=== PATIENT | female | born 1940 | race Caucasian/White ===

== ENCOUNTER 2018-04-23 08:44 | Outpatient (RCR) | payer MEDICARE, SELFPAY ==
[2018-04-23 09:26] VITALS: BP 124/59; PULSE 59; RESP 16; TEMP 36.3; BMI 23.3
--- NOTE | 2018-04-23 10:54 | PCM.WC.HP ---
(1) Hypertension Status: Chronic Current Visit: No Code(s): I10 - Essential (primary) hypertension (2) Diabetes mellitus Status: Chronic Current Visit: No Qualifiers: Diabetes mellitus type: type 2 Code(s): E11.9 - Type 2 diabetes mellitus without complications (3) CHF (congestive heart failure) Status: Chronic Current Visit: No Code(s): I50.9 - Heart failure, unspecified (4) History of TIA (transient ischemic attack) Status: Chronic Current Visit: No Code(s): Z86.73 - Personal history of transient ischemic attack (TIA), and cerebral infarction without residual deficits (5) Chronic renal insufficiency, stage III (moderate) Status: Chronic Current Visit: No Code(s): N18.3 - Chronic kidney disease, stage 3 (moderate) (6) Anxiety Status: Chronic Current Visit: No Code(s): F41.9 - Anxiety disorder, unspecified (7) A-fib Status: Chronic Current Visit: No Code(s): I48.91 - Unspecified atrial fibrillation (8) Sleep apnea Status: Chronic Current Visit: No Code(s): G47.30 - Sleep apnea, unspecified (9) Arthritis Status: Chronic Current Visit: No Code(s): M19.90 - Unspecified osteoarthritis, unspecified site (10) GERD (gastroesophageal reflux disease) Status: Chronic Current Visit: No Code(s): K21.9 - Gastro-esophageal reflux disease without esophagitis (11) Depression Status: Chronic Current Visit: No Code(s): F32.9 - Major depressive disorder, single episode, unspecified (12) Hyperthyroidism Status: Chronic Current Visit: No Code(s): E05.90 - Thyrotoxicosis, unspecified without thyrotoxic crisis or storm (13) Peripheral neuropathy Status: Chronic Current Visit: No Code(s): G62.9 - Polyneuropathy, unspecified (14) Hyperlipidemia Status: Chronic Current Visit: No Code(s): E78.5 - Hyperlipidemia, unspecified (15) Giant cell arteritis Status: Chronic Current Visit: No Code(s): M31.6 - Other giant cell arteritis (16) Steroid dependence Status: Chronic Current Visit: No History of Present Illness Date of Service: 04/23/18 Chief Complaint: Referred by Dr. Sam Quinonez, belt machine operator, for evaluation relative to possible lower extremity arterial occlusive disease History of Wound: This is an 78-year-old female who presents as a referral from her belt machine operator, Dr. Sam Quinonez. At the time of her presentation, the patient has no complaints, but for occasional patchy scaliness and dermatitis on her feet, and rare episodes of pain in her feet which are unrelated to time of day, position, activity, etc. She was referred for evaluation relative to possible peripheral arterial occlusive disease. She underwent a noninvasive lower extremity arterial study at the [facility] 2 weeks ago, but was not told the results of her test, and records have not been received from other providers indicating the results. The patient is currently under the care of her family doctor, a clicker operator, and Dr. Sam Quinonez, her belt machine operator. The patient sleeps on a flat mattress at night. She experiences no swelling in her lower extremities. She has no history of lower extremity thrombophlebitis. When questioned specifically about symptoms of rest pain and intermittent claudication, which would be indicative of arterial occlusive disease, the patient denies any such symptoms. Review of medical records from 2012 reveals a noninvasive lower extremity arterial study which demonstrated evidence of arterial calcification, but no definitive evidence of an occlusive arterial process. A venous study, also from 2013, was normal bilaterally. Past Medical History Past Medical History: Chronic Problems Hypertension (Chronic) Diabetes mellitus (Chronic) CHF (congestive heart failure) (Chronic) History of TIA (transient ischemic attack) (Chronic) Chronic renal insufficiency, stage III (moderate) (Chronic) Anxiety (Chronic) A-fib (Chronic) Sleep apnea (Chronic) Arthritis (Chronic) GERD (gastroesophageal reflux disease) (Chronic) Depression (Chronic) Hyperthyroidism (Chronic) Peripheral neuropathy (Chronic) Hyperlipidemia (Chronic) Giant cell arteritis (Chronic) Steroid dependence (Chronic) Past Medical History: Patient has a history of anxiety, atrial fibrillation, arthritis, sleep apnea, gastroesophageal reflux disease, hypertension, peripheral neuropathy, depression, hyperthyroidism, giant cell arteritis, hyperlipidemia, steroid dependence, congestive heart failure, hypertension, and diabetes mellitus. She also has a history of transient ischemic attack in the remote past. She has a history of renal insufficiency, stage III. She denies a history of myocardial infarction and pulmonary disease. Surgical History: - - The patient is a AB 1 (spontaneous). 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 She has had sinus surgery in the past. She is undergone a total abdominal hysterectomy. She has had a cholecystectomy, and left foot surgery. Allergies/Adverse Reactions: Allergies acetaminophen [From Darvocet-N 100] Allergy (Verified 06/26/13 19:59) Other carvedilol [From Coreg] Allergy (Verified 06/26/13 19:59) Chest tightness diazepam [From Valium] Allergy (Verified 06/26/13 19:59) Other escitalopram oxalate [From Lexapro] Allergy (Verified 06/26/13 19:59) Other morphine Allergy (Verified 06/26/13 19:59) Rash niacin [From Niaspan Extended-Release] Allergy (Verified 06/26/13 19:59) Other Penicillins Allergy (Verified 06/26/13 19:59) Unknown prednisone Allergy (Verified 06/26/13 19:59) Other propoxyphene napsylate [From Darvocet-N 100] Allergy (Verified 06/26/13 19:59) Other rosuvastatin calcium [From Crestor] Allergy (Verified 06/26/13 19:59) Chest tightness Home Medications: Ambulatory Orders Medication Instructions Recorded ALPRAZolam [Xanax] 1 mg PO TID PRN PRN 06/26/13 Fluticasone 0.05% [Flonase Nasal 2 spray NASAL DAILY 06/26/13 [place]] Furosemide [Lasix] 40 mg PO DAILY 06/26/13 Hydroxyurea [Hydrea] 500 mg PO BID 06/26/13 Riboflavin 06/26/13 Simvastatin [Zocor] 10 mg PO QHS 06/26/13 Spironolactone [Aldactone] 25 mg PO DAILY 06/26/13 predniSONE tablet 10 mg PO DAILY@0800 06/26/13 - Family History Paternal - - The patient's father at the age of 73 with black lung. He was a muck miner blasting. Patient's mother at age of 86 with a history of dementia and Alzheimer's disease. Social History: The patient is a . She denies the use of alcohol and tobacco products. 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 Lives: Alone Smoking Status: Never smoker Tobacco Use: Non-smoker Alcohol: None Drugs: None Review of Systems Constitutional: Denies: Chills, Fever, Weight Change Eyes: Denies: Pain, Vision Change HEENT: Denies: Difficulty Hearing, Difficulty Swallowing, Sinus Congestion Cardiovascular: Denies: Chest Pain, Palpitations Respiratory: Denies: Cough, Shortness of Breath Gastrointestinal: Denies: Diarrhea, Nausea, Vomiting Genitourinary: Denies: Dysuria, Hematuria Endocrine: Denies: Heat/ Cold Intolerance, Polydipsia, Polyuria Hematologic/ Lymphatic: Denies: Easy Bruising, Easy Bleeding - Physical Exam Vital Signs Temp Pulse Resp BP 97.3 F L 59 L 16 124/59 H 04/23/18 09:26 04/23/18 09:26 04/23/18 09:26 04/23/18 09:26 General: Alert, Oriented x3, Cooperative, No apparent distress, Well developed, Well nourished, - - The patient is of normal body weight. HEENT: Atraumatic, PERRLA, EOMI, Normocephalic Oral: Moist Mucosa Neck: No JVD, Negative Carotid Bruits, Negative Hepatojugular Reflux, No Nodes, No Nuchal Rigidity, Trachea Midline Lungs: Clear to auscultation, Normal air movement, No rhonchi, No wheeze, No rales Cardiovascular: Regular rate, Regular Rhythm, Normal S1, Normal S2, No murmurs Abdomen: Soft, Non Tender, Non-Distended Extremities: No clubbing, No cyanosis, No edema, No Calf Tenderness, - - There is no swelling or edema noted in the patient's lower extremities. There are no open wounds or ulcerations. Minor scaliness is noted on the heels. There are no significant color changes in the lower extremities or feet. No rashes or abnormal lesions are noted. Feet are cool to palpation. Pedal pulses appear to be diminished somewhat by palpation. Skin: No rashes, No breakdown Wound Measurements and Assessment WC - Nurse 1 - General Ulcer Measurement Start: 04/23/18 09:24 Freq: Status: Active Protocol: Activity Type Activity Date Activity User E-Sign Co-Sign Detail Recorded Client Recorded Date Recorded By Document 04/23/18 09:26 DV [id number] 04/23/18 09:54 DV 04/23/18 09:26 Wound Center Nurse 1 [Edema Assessment] -Lower Limb Edema Present No WC - Nurse 2 - General Ulcer CM Notes Start: 04/23/18 09:24 Freq: Status: Active Protocol: Activity Type Activity Date Activity User E-Sign Co-Sign Detail Recorded Client Recorded Date Recorded By Document 04/23/18 10:52 JS [id number] 04/23/18 10:53 04/23/18 10:52 Pain Scale: 0-10 Numeric [Pain] -Is Patient Pain Free? Yes Neurological: Cranial nerves II-XII grossly intact, Neuro grossly intact Psych/Mental Status: Normal Affect, Appropriate, Alert and oriented to time, place, person, mood and affect Debridement Note Post-Debridement Measurements/Treatment WC - Nurse 2 - General Ulcer CM Notes Start: 04/23/18 09:24 Freq: Status: Active Protocol: Activity Type Activity Date Activity User E-Sign Co-Sign Detail Recorded Client Recorded Date Recorded By Document 04/23/18 10:52 [id number] 04/23/18 10:53 04/23/18 10:52 Pain Scale: 0-10 Numeric Is Patient Pain Free? Yes No debridement was completed today Assessment/Plan We are to await the recent results of the patient's noninvasive lower extremity arterial study. Assessment: This is an 78-year-old female who presents as a referral from her belt machine operator, Dr. Sam Quinonez. Question to be answered is does the patient have significant arterial occlusive disease in her lower extremities. Her history is documented above. She has very little in terms of symptoms in her lower extremities that are relatable to arterial insufficiency. She is relatively active for her age. She relates no symptoms of intermittent claudication. She denies symptoms which could be construed as rest pain at night while sleeping. Prior vascular studies performed approximately 5 years ago revealed no evidence of significant arterial occlusive disease in the lower extremities. A recent noninvasive lower extremity arterial study was performed at the [facility], based upon the patient's account. However, these results did not accompany the patient or proceed her visit. The results will be awaited. Patient is to return in approximately 2 weeks for reassessment, at which time it is anticipated that test results will be available. However, based upon the patient's history, significant arterial insufficiency is not suspected. Furthermore, considering her advanced age, aggressive management of arterial insufficiency, and the absence of limb threatening ischemia or significant symptoms, would be unlikely. Plan: We have requested the results of the patient's recent noninvasive lower extremity arterial study performed at the [facility]. The patient is to remain under the care of her other medical providers, including her family physician, clicker operator, and belt machine operator. The patient is to return in 2 weeks for reassessment. Patient is not a smoker. Influenza vaccine was not administered today. Patient stands 5 feet 3 inches tall. She weighs 132 pounds. Her BMI is 23.3, which is normal.
--- NOTE | 2018-04-23 10:58 | HP.PCM_ITS ---
(1) Hypertension Status: Chronic Current Visit: No Code(s): I10 - Essential (primary) hypertension (2) Diabetes mellitus Status: Chronic Current Visit: No Qualifiers: Diabetes mellitus type: type 2 Code(s): E11.9 - Type 2 diabetes mellitus without complications (3) CHF (congestive heart failure) Status: Chronic Current Visit: No Code(s): I50.9 - Heart failure, unspecified (4) History of TIA (transient ischemic attack) Status: Chronic Current Visit: No Code(s): Z86.73 - Personal history of transient ischemic attack (TIA), and cerebral infarction without residual deficits (5) Chronic renal insufficiency, stage III (moderate) Status: Chronic Current Visit: No Code(s): N18.3 - Chronic kidney disease, stage 3 (moderate) (6) Anxiety Status: Chronic Current Visit: No Code(s): F41.9 - Anxiety disorder, unspecified (7) A-fib Status: Chronic Current Visit: No Code(s): I48.91 - Unspecified atrial fibrillation (8) Sleep apnea Status: Chronic Current Visit: No Code(s): G47.30 - Sleep apnea, unspecified (9) Arthritis Status: Chronic Current Visit: No Code(s): M19.90 - Unspecified osteoarthritis, unspecified site (10) GERD (gastroesophageal reflux disease) Status: Chronic Current Visit: No Code(s): K21.9 - Gastro-esophageal reflux disease without esophagitis (11) Depression Status: Chronic Current Visit: No Code(s): F32.9 - Major depressive disorder, single episode, unspecified (12) Hyperthyroidism Status: Chronic Current Visit: No Code(s): E05.90 - Thyrotoxicosis, unspecified without thyrotoxic crisis or storm (13) Peripheral neuropathy Status: Chronic Current Visit: No Code(s): G62.9 - Polyneuropathy, unspecified (14) Hyperlipidemia Status: Chronic Current Visit: No Code(s): E78.5 - Hyperlipidemia, unspecified (15) Giant cell arteritis Status: Chronic Current Visit: No Code(s): M31.6 - Other giant cell arteritis (16) Steroid dependence Status: Chronic Current Visit: No History of Present Illness Date of Service: 04/23/18 Chief Complaint: Referred by Dr. Sam Quinonez, vocational adviser, for evaluation relative to possible lower extremity arterial occlusive disease History of Wound: This is an 78-year-old female who presents as a referral from her vocational adviser, Dr. Sam Quinonez. At the time of her presentation, the patient has no complaints, but for occasional patchy scaliness and dermatitis on her feet, and rare episodes of pain in her feet which are unrelated to time of day, position, activity, etc. She was referred for evaluation relative to possible peripheral arterial occlusive disease. She underwent a noninvasive lower extremity arterial study at the [facility] 2 weeks ago, but was not told the results of her test, and records have not been received from other providers indicating the results. The patient is currently under the care of her family doctor, a test deck supervisor, and Dr. Sam Quinonez, her vocational adviser. The patient sleeps on a flat mattress at night. She experiences no swelling in her lower extremities. She has no history of lower extremity thrombophlebitis. When questioned specifically about symptoms of rest pain and intermittent claudication, which would be indicative of arterial occlusive disease, the patient denies any such symptoms. Review of medical records from 2012 reveals a noninvasive lower extremity arterial study which demonstrated evidence of arterial calcification, but no definitive evidence of an occlusive arterial process. A venous study, also from 2013, was normal bilaterally. Past Medical History Past Medical History: Chronic Problems Hypertension (Chronic) Diabetes mellitus (Chronic) CHF (congestive heart failure) (Chronic) History of TIA (transient ischemic attack) (Chronic) Chronic renal insufficiency, stage III (moderate) (Chronic) Anxiety (Chronic) A-fib (Chronic) Sleep apnea (Chronic) Arthritis (Chronic) GERD (gastroesophageal reflux disease) (Chronic) Depression (Chronic) Hyperthyroidism (Chronic) Peripheral neuropathy (Chronic) Hyperlipidemia (Chronic) Giant cell arteritis (Chronic) Steroid dependence (Chronic) Past Medical History: Patient has a history of anxiety, atrial fibrillation, arthritis, sleep apnea, gastroesophageal reflux disease, hypertension, peripheral neuropathy, depression, hyperthyroidism, giant cell arteritis, hyperlipidemia, steroid dependence, congestive heart failure, hypertension, and diabetes mellitus. She also has a history of transient ischemic attack in the remote past. She has a history of renal insufficiency, stage III. She denies a history of myocardial infarction and pulmonary disease. Surgical History: - - The patient is a AB 1 (spontaneous). 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 She has had sinus surgery in the past. She is undergone a total abdominal hysterectomy. She has had a cholecystectomy, and left foot surgery. Allergies/Adverse Reactions: Allergies acetaminophen [From Darvocet-N 100] Allergy (Verified 06/26/13 19:59) Other carvedilol [From Coreg] Allergy (Verified 06/26/13 19:59) Chest tightness diazepam [From Valium] Allergy (Verified 06/26/13 19:59) Other escitalopram oxalate [From Lexapro] Allergy (Verified 06/26/13 19:59) Other morphine Allergy (Verified 06/26/13 19:59) Rash niacin [From Niaspan Extended-Release] Allergy (Verified 06/26/13 19:59) Other Penicillins Allergy (Verified 06/26/13 19:59) Unknown prednisone Allergy (Verified 06/26/13 19:59) Other propoxyphene napsylate [From Darvocet-N 100] Allergy (Verified 06/26/13 19:59) Other rosuvastatin calcium [From Crestor] Allergy (Verified 06/26/13 19:59) Chest tightness Home Medications: Ambulatory Orders Medication Instructions Recorded ALPRAZolam [Xanax] 1 mg PO TID PRN PRN 06/26/13 Fluticasone 0.05% [Flonase Nasal 2 spray NASAL DAILY 06/26/13 [place]] Furosemide [Lasix] 40 mg PO DAILY 06/26/13 Hydroxyurea [Hydrea] 500 mg PO BID 06/26/13 Riboflavin 06/26/13 Simvastatin [Zocor] 10 mg PO QHS 06/26/13 Spironolactone [Aldactone] 25 mg PO DAILY 06/26/13 predniSONE tablet 10 mg PO DAILY@0800 06/26/13 - Family History Paternal - - The patient's father at the age of 73 with black lung. He was a coal getter. Patient's mother at age of 86 with a history of dementia and Alzheimer's disease. Social History: The patient is a . She denies the use of alcohol and tobacco products. She is a retired dental secretary. Lives: Alone Smoking Status: Never smoker Tobacco Use: Non-smoker Alcohol: None Drugs: None Review of Systems Constitutional: Denies: Chills, Fever, Weight Change Eyes: Denies: Pain, Vision Change HEENT: Denies: Difficulty Hearing, Difficulty Swallowing, Sinus Congestion Cardiovascular: Denies: Chest Pain, Palpitations Respiratory: Denies: Cough, Shortness of Breath Gastrointestinal: Denies: Diarrhea, Nausea, Vomiting Genitourinary: Denies: Dysuria, Hematuria Endocrine: Denies: Heat/ Cold Intolerance, Polydipsia, Polyuria Hematologic/ Lymphatic: Denies: Easy Bruising, Easy Bleeding - Physical Exam Vital Signs Temp Pulse Resp BP 97.3 F L 59 L 16 124/59 H 04/23/18 09:26 04/23/18 09:26 04/23/18 09:26 04/23/18 09:26 General: Alert, Oriented x3, Cooperative, No apparent distress, Well developed, Well nourished, - - The patient is of normal body weight. HEENT: Atraumatic, PERRLA, EOMI, Normocephalic Oral: Moist Mucosa Neck: No JVD, Negative Carotid Bruits, Negative Hepatojugular Reflux, No Nodes, No Nuchal Rigidity, Trachea Midline Lungs: Clear to auscultation, Normal air movement, No rhonchi, No wheeze, No rales Cardiovascular: Regular rate, Regular Rhythm, Normal S1, Normal S2, No murmurs Abdomen: Soft, Non Tender, Non-Distended Extremities: No clubbing, No cyanosis, No edema, No Calf Tenderness, - - There is no swelling or edema noted in the patient's lower extremities. There are no open wounds or ulcerations. Minor scaliness is noted on the heels. There are no significant color changes in the lower extremities or feet. No rashes or abnormal lesions are noted. Feet are cool to palpation. Pedal pulses appear to be diminished somewhat by palpation. Skin: No rashes, No breakdown Wound Measurements and Assessment WC - Nurse 1 - General Ulcer Measurement Start: 04/23/18 09:24 Freq: Status: Active Protocol: Activity Type Activity Date Activity User E-Sign Co-Sign Detail Recorded Client Recorded Date Recorded By Document 04/23/18 09:26 DV [id number] 04/23/18 09:54 DV 04/23/18 09:26 Wound Center Nurse 1 [Edema Assessment] -Lower Limb Edema Present No WC - Nurse 2 - General Ulcer CM Notes Start: 04/23/18 09:24 Freq: Status: Active Protocol: Activity Type Activity Date Activity User E-Sign Co-Sign Detail Recorded Client Recorded Date Recorded By Document 04/23/18 10:52 JS [id number] 04/23/18 10:53 04/23/18 10:52 Pain Scale: 0-10 Numeric [Pain] -Is Patient Pain Free? Yes Neurological: Cranial nerves II-XII grossly intact, Neuro grossly intact Psych/Mental Status: Normal Affect, Appropriate, Alert and oriented to time, place, person, mood and affect Debridement Note Post-Debridement Measurements/Treatment WC - Nurse 2 - General Ulcer CM Notes Start: 04/23/18 09:24 Freq: Status: Active Protocol: Activity Type Activity Date Activity User E-Sign Co-Sign Detail Recorded Client Recorded Date Recorded By Document 04/23/18 10:52 [id number] 04/23/18 10:53 04/23/18 10:52 Pain Scale: 0-10 Numeric Is Patient Pain Free? Yes No debridement was completed today Assessment/Plan We are to await the recent results of the patient's noninvasive lower extremity arterial study. Assessment: This is an 78-year-old female who presents as a referral from her vocational adviser, Dr. Sam Quinonez. Question to be answered is does the patient have significant arterial occlusive disease in her lower extremities. Her history is documented above. She has very little in terms of symptoms in her lower extremities that are relatable to arterial insufficiency. She is relatively active for her age. She relates no symptoms of intermittent claudication. She denies symptoms which could be construed as rest pain at night while sleeping. Prior vascular studies performed approximately 5 years ago revealed no evidence of significant arterial occlusive disease in the lower extremities. A recent noninvasive lower extremity arterial study was performed at the [facility], based upon the patient's account. However, these results did not accompany the patient or proceed her visit. The results will be awaited. Patient is to return in approximately 2 weeks for reassessment, at which time it is anticipated that test results will be available. However, based upon the patient's history, significant arterial insufficiency is not suspected. Furthermore, considering her advanced age, aggressive management of arterial insufficiency, and the absence of limb threatening ischemia or significant symptoms, would be unlikely. Plan: We have requested the results of the patient's recent noninvasive lower extremity arterial study performed at the [facility]. The patient is to [place] under the care of her other medical providers, including her family physician, test deck supervisor, and vocational adviser. The patient is to return in 2 weeks for reassessment. Patient is not a smoker. Influenza vaccine was not administered today. Patient stands 5 feet 3 inches tall. She weighs 132 pounds. Her BMI is 23.3, which is normal.
--- NOTE | 2018-04-25 17:25 | WC ---
Patient referred from Dr. Sam Quinonez for lower leg ulcer. Mrs. Rodríguez's PCP is Dr. Vince Herrera, [facility]. Patient was scheduled and seen on Sunday04/23/[address] Bryon Ford. Mrs. Rodríguez was a poor historian regarding her medical history or diagnostic studies. [facility]. Her visit was limited since limitied medical history was available. Request for records sent to PCP (Dr. Wm Herrera [facility] (04/23/18) , and Dr. Javier Lai; for vascular records (Dr. Lai's office returned fax stating there are no patient records in that office). Re-faxed request for records from [facility]-Dr. Herrera including recent H&P, Lab Work (Blood/Cultures), & Non-Invasive Vascular Studies.
== END 2018-05-10 23:59 ==
LOC: WC 08:44
PROVIDERS: Family Provider Family Medicine; PCP Family Medicine; Visit Provider Surgery
DX: E11.22 Type 2 diabetes mellitus with diabetic chronic kidney disease (principal); N18.3 Chronic kidney disease, stage 3 (moderate); Z86.73 Personal history of transient ischemic attack (TIA), and cerebral infarction without residual deficits; I50.9 Heart failure, unspecified; I13.0 Hypertensive heart and chronic kidney disease with heart failure and stage 1 through stage 4 chronic kidney disease, or unspecified chronic kidney disease; M19.90 Unspecified osteoarthritis, unspecified site; K21.9 Gastro-esophageal reflux disease without esophagitis; E11.42 Type 2 diabetes mellitus with diabetic polyneuropathy; E78.5 Hyperlipidemia, unspecified
CPT/HCPCS: 99211; G0463

== ENCOUNTER 2018-06-10 15:00 | Outpatient (RCR) | payer MEDICARE, SELFPAY ==
[2018-05-11 02:02] VITALS: BP 124/59; PULSE 59; RESP 16; TEMP 36.3
[2018-06-05 11:51] VITALS: BP 136/72; PULSE 63; RESP 16; TEMP 35.4; BMI 23.3
--- NOTE | 2018-06-05 13:10 | PCM.WC.PN ---
(1) Heel pain, bilateral Status: Chronic Current Visit: Yes Code(s): M79.671 - Pain in right foot; M79.672 - Pain in left foot (2) Atherosclerotic peripheral vascular disease of extremity Status: Chronic Current Visit: Yes Code(s): I70.209 - Unspecified atherosclerosis of [place] arteries of extremities, unspecified extremity (3) Diabetes mellitus Status: Chronic Current Visit: No Code(s): E11.9 - Type 2 diabetes mellitus without complications Type of Wound Chief Complaint: Referred by Dr. Sam Quinonez, planning specialist, for evaluation relative to possible lower extremity arterial occlusive disease History of Wound: This is an 78-year-old female who presents as a referral from her planning specialist, Dr. Sam Quinonez. At the time of her presentation, the patient has no complaints, but for occasional patchy scaliness and dermatitis on her feet, and rare episodes of pain in her feet which are unrelated to time of day, position, activity, etc. She was referred for evaluation relative to possible peripheral arterial occlusive disease. She underwent a noninvasive lower extremity arterial study at the [facility] 2 weeks ago, but was not told the results of her test, and records have not been received from other providers indicating the results. The patient is currently under the care of her family doctor, a stained glass joiner, and Dr. Sam Quinonez, her planning specialist. The patient sleeps on a flat mattress at night. She experiences no swelling in her lower extremities. She has no history of lower extremity thrombophlebitis. When questioned specifically about symptoms of rest pain and intermittent claudication, which would be indicative of arterial occlusive disease, the patient denies any such symptoms. Review of medical records from 2012 reveals a noninvasive lower extremity arterial study which demonstrated evidence of arterial calcification, but no definitive evidence of an occlusive arterial process. A venous study, also from 2013, was normal bilaterally. Progress of Wound: Courtesy visit for Dr Ford. No acute concerns at this time. - Physical Exam Vital Signs Temp Pulse Resp BP 95.8 F L 63 16 136/72 H 06/05/18 11:51 06/05/18 11:51 06/05/18 11:51 06/05/18 11:51 General: Alert, Oriented x3, Cooperative, No apparent distress HEENT: Atraumatic, Normocephalic Oral: Moist Mucosa Neck: Supple Lungs: Normal air movement Extremities: No cyanosis Wound Measurements and Assessment WC - Nurse 2 - General Ulcer CM Notes Start: 06/05/18 11:51 Freq: Status: Active Protocol: Activity Type Activity Date Activity User E-Sign Co-Sign Detail Recorded Client Recorded Date Recorded By Document 06/05/18 12:28 [id number] 06/05/18 12:30 06/05/18 12:28 Pain Scale: 0-10 Numeric [Pain] -Is Patient Pain Free? No [Location] Right Heel -Description Aching -Intensity 6 Query Text:If >3, intervention needed -Radiation Location n/a -Duration (hours) Chronic -Pain Behavior Facial Grimacing -Pain Aggravating Factors Walking -Alleviating Factors/Interventions Inactivity/ Resting -Effectiveness of Alleviating Factor/ Not effective Intervention Musculoskeletal: No Muscle Wasting Neurological: Cranial nerves II-XII grossly intact Psych/Mental Status: Normal Affect Debridement Note Post-Debridement Measurements/Treatment WC - Nurse 2 - General Ulcer CM Notes Start: 06/05/18 11:51 Freq: Status: Active Protocol: Activity Type Activity Date Activity User E-Sign Co-Sign Detail Recorded Client Recorded Date Recorded By Document 06/05/18 12:28 [id number] 06/05/18 12:30 06/05/18 12:28 Pain Scale: 0-10 Numeric Is Patient Pain Free? No Right Heel -Description Aching -Intensity 6 Query Text:If >3, intervention needed -Radiation Location n/a -Duration (hours) Chronic -Pain Behavior Facial Grimacing -Pain Aggravating Factors Walking -Alleviating Factors/Interventions Inactivity/ Resting -Effectiveness of Alleviating Factor/ Not effective Intervention No debridement was completed today Assessment/Plan Active Problems Heel pain, bilateral (Chronic) Atherosclerotic peripheral vascular disease of extremity (Chronic) Assessment: Same as above. Plan: No acute/new concerns at this time. Chronic bilateral heel pain however, patient states that she has significant pressure to her heels daily when she lays in bed and watches the birds outside. Has had a prior history of heel ulcers. None apparent at this time. At best a stage I pressure. Offloading advised. Results of arterial status discussed. Advised that she follow-up with Dr. Ford. All her questions were answered, and she was advised to call with any further questions or concerns. Follow-up with Dr. Ford on the . This note was generated with Dragon dictation software. It may contain incorrect words, spelling, and punctuation that were not noted in checking the note before signing.
--- NOTE | 2018-06-05 13:17 | PN.PCM_ITS ---
(1) Heel pain, bilateral Status: Chronic Current Visit: Yes Code(s): M79.671 - Pain in right foot; M79.672 - Pain in left foot (2) Atherosclerotic peripheral vascular disease of extremity Status: Chronic Current Visit: Yes Code(s): I70.209 - Unspecified atherosclerosis of [place] arteries of extremities, unspecified extremity (3) Diabetes mellitus Status: Chronic Current Visit: No Code(s): E11.9 - Type 2 diabetes mellitus without complications Type of Wound Chief Complaint: Referred by Dr. Sam Quinonez, embossing calender operator, for evaluation relative to possible lower extremity arterial occlusive disease History of Wound: This is an 78-year-old female who presents as a referral from her embossing calender operator, Dr. Sam Quinonez. At the time of her presentation, the patient has no complaints, but for occasional patchy scaliness and dermatitis on her feet, and rare episodes of pain in her feet which are unrelated to time of day, position, activity, etc. She was referred for evaluation relative to possible peripheral arterial occlusive disease. She underwent a noninvasive lower extremity arterial study at the [facility] 2 weeks ago, but was not told the results of her test, and records have not been received from other providers indicating the results. The patient is currently under the care of her family doctor, a shorts sifter, and Dr. Sam Quinonez, her embossing calender operator. The patient sleeps on a flat mattress at night. She experiences no swelling in her lower extremities. She has no history of lower extremity thrombophlebitis. When questioned specifically about symptoms of rest pain and intermittent claudication, which would be indicative of arterial occlusive disease, the patient denies any such symptoms. Review of medical records from 2012 reveals a noninvasive lower extremity arterial study which demonstrated evidence of arterial calcification, but no definitive evidence of an occlusive arterial process. A venous study, also from 2013, was normal bilaterally. Progress of Wound: Courtesy visit for Dr Ford. No acute concerns at this time. - Physical Exam Vital Signs Temp Pulse Resp BP 95.8 F L 63 16 136/72 H 06/05/18 11:51 06/05/18 11:51 06/05/18 11:51 06/05/18 11:51 General: Alert, Oriented x3, Cooperative, No apparent distress HEENT: Atraumatic, Normocephalic Oral: Moist Mucosa Neck: Supple Lungs: Normal air movement Extremities: No cyanosis Wound Measurements and Assessment WC - Nurse 2 - General Ulcer CM Notes Start: 06/05/18 11:51 Freq: Status: Active Protocol: Activity Type Activity Date Activity User E-Sign Co-Sign Detail Recorded Client Recorded Date Recorded By Document 06/05/18 12:28 [id number] 06/05/18 12:30 06/05/18 12:28 Pain Scale: 0-10 Numeric [Pain] -Is Patient Pain Free? No [Location] Right Heel -Description Aching -Intensity 6 Query Text:If >3, intervention needed -Radiation Location n/a -Duration (hours) Chronic -Pain Behavior Facial Grimacing -Pain Aggravating Factors Walking -Alleviating Factors/Interventions Inactivity/ Resting -Effectiveness of Alleviating Factor/ Not effective Intervention Musculoskeletal: No Muscle Wasting Neurological: Cranial nerves II-XII grossly intact Psych/Mental Status: Normal Affect Debridement Note Post-Debridement Measurements/Treatment WC - Nurse 2 - General Ulcer CM Notes Start: 06/05/18 11:51 Freq: Status: Active Protocol: Activity Type Activity Date Activity User E-Sign Co-Sign Detail Recorded Client Recorded Date Recorded By Document 06/05/18 12:28 [id number] 06/05/18 12:30 06/05/18 12:28 Pain Scale: 0-10 Numeric Is Patient Pain Free? No Right Heel -Description Aching -Intensity 6 Query Text:If >3, intervention needed -Radiation Location n/a -Duration (hours) Chronic -Pain Behavior Facial Grimacing -Pain Aggravating Factors Walking -Alleviating Factors/Interventions Inactivity/ Resting -Effectiveness of Alleviating Factor/ Not effective Intervention No debridement was completed today Assessment/Plan Active Problems Heel pain, bilateral (Chronic) Atherosclerotic peripheral vascular disease of extremity (Chronic) Assessment: Same as above. Plan: No acute/new concerns at this time. Chronic bilateral heel pain however, patient states that she has significant pressure to her heels daily when she lays in bed and watches the birds outside. Has had a prior history of heel ulcers. None apparent at this time. At best a stage I pressure. Offloading advised. Results of arterial status discussed. Advised that she follow-up with Dr. Ford. All her questions were answered, and she was advised to call with any further questions or concerns. Follow-up with Dr. Ford on the . This note was generated with Dragon dictation software. It may contain incorrect words, spelling, and punctuation that were not noted in checking the note before signing.
[2018-06-10 15:08] VITALS: BP 125/78; PULSE 72; RESP 18; TEMP 36; BMI 23.3
--- NOTE | 2018-06-10 15:26 | PCM.WC.HP ---
(1) Hypertension Status: Chronic Current Visit: No Code(s): I10 - Essential (primary) hypertension (2) Diabetes mellitus Status: Chronic Current Visit: No Qualifiers: Diabetes mellitus type: type 2 Code(s): E11.9 - Type 2 diabetes mellitus without complications (3) CHF (congestive heart failure) Status: Chronic Current Visit: No Code(s): I50.9 - Heart failure, unspecified (4) History of TIA (transient ischemic attack) Status: Chronic Current Visit: No Code(s): Z86.73 - Personal history of transient ischemic attack (TIA), and cerebral infarction without residual deficits (5) Chronic renal insufficiency, stage III (moderate) Status: Chronic Current Visit: No Code(s): N18.3 - Chronic kidney disease, stage 3 (moderate) (6) Anxiety Status: Chronic Current Visit: No Code(s): F41.9 - Anxiety disorder, unspecified (7) A-fib Status: Chronic Current Visit: No Code(s): I48.91 - Unspecified atrial fibrillation (8) Sleep apnea Status: Chronic Current Visit: No Code(s): G47.30 - Sleep apnea, unspecified (9) Arthritis Status: Chronic Current Visit: No Code(s): M19.90 - Unspecified osteoarthritis, unspecified site (10) GERD (gastroesophageal reflux disease) Status: Chronic Current Visit: No Code(s): K21.9 - Gastro-esophageal reflux disease without esophagitis (11) Depression Status: Chronic Current Visit: No Code(s): F32.9 - Major depressive disorder, single episode, unspecified (12) Hyperthyroidism Status: Chronic Current Visit: No Code(s): E05.90 - Thyrotoxicosis, unspecified without thyrotoxic crisis or storm (13) Peripheral neuropathy Status: Chronic Current Visit: No Code(s): G62.9 - Polyneuropathy, unspecified (14) Hyperlipidemia Status: Chronic Current Visit: No Code(s): E78.5 - Hyperlipidemia, unspecified (15) Giant cell arteritis Status: Chronic Current Visit: No Code(s): M31.6 - Other giant cell arteritis (16) Steroid dependence Status: Chronic Current Visit: No History of Present Illness Chief Complaint: Referred by Dr. Sam Quinonez, credit review manager, for evaluation relative to possible lower extremity arterial occlusive disease History of Wound: This is an 78-year-old female who presented originally as a referral from her credit review manager, Dr. Sam Quinonez. At the time of her presentation, the patient had no complaints, but for occasional patchy scaliness and dermatitis on her feet, and rare episodes of pain in her feet which are unrelated to time of day, position, activity, etc. She was referred for evaluation relative to possible peripheral arterial occlusive disease. She underwent a noninvasive lower extremity arterial study at the [facility], which was not available at the time of the patient's initial visit. Since that time, the results have been obtained, revealing the following: The right ankle-brachial index 1.57; the left ankle-brachial index 2.08; the right digital-brachial index 0.50; the left digital brachial index 0.61. The patient is under the care of her family doctor, a financial wellness coach, and Dr. Sam Quinonez, her credit review manager. The patient sleeps on a flat mattress at night. She experiences no swelling in her lower extremities. She has no history of lower extremity thrombophlebitis. When questioned specifically about symptoms of rest pain and intermittent claudication, which would be indicative of arterial occlusive disease, the patient denies any such symptoms. Review of medical records from 2012 reveals a noninvasive lower extremity arterial study which demonstrated evidence of arterial calcification, but no definitive evidence of an occlusive arterial process. A venous study, also from 2013, was normal bilaterally. Past Medical History Past Medical History: Chronic Problems Hypertension (Chronic) Diabetes mellitus (Chronic) CHF (congestive heart failure) (Chronic) History of TIA (transient ischemic attack) (Chronic) Chronic renal insufficiency, stage III (moderate) (Chronic) Anxiety (Chronic) A-fib (Chronic) Sleep apnea (Chronic) Arthritis (Chronic) GERD (gastroesophageal reflux disease) (Chronic) Depression (Chronic) Hyperthyroidism (Chronic) Peripheral neuropathy (Chronic) Hyperlipidemia (Chronic) Giant cell arteritis (Chronic) Steroid dependence (Chronic) Heel pain, bilateral (Chronic) Atherosclerotic peripheral vascular disease of extremity (Chronic) Surgical History: - - The patient is a AB 1 (spontaneous). 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 She has had sinus surgery in the past. She is undergone a total abdominal hysterectomy. She has had a cholecystectomy, and left foot surgery. Allergies/Adverse Reactions: Allergies acetaminophen [From Darvocet-N 100] Allergy (Verified 06/26/13 19:59) Other carvedilol [From Coreg] Allergy (Verified 06/26/13 19:59) Chest tightness diazepam [From Valium] Allergy (Verified 06/26/13 19:59) Other escitalopram oxalate [From Lexapro] Allergy (Verified 06/26/13 19:59) Other morphine Allergy (Verified 06/26/13 19:59) Rash niacin [From Niaspan Extended-Release] Allergy (Verified 06/26/13 19:59) Other Penicillins Allergy (Verified 06/26/13 19:59) Unknown prednisone Allergy (Verified 06/26/13 19:59) Other propoxyphene napsylate [From Darvocet-N 100] Allergy (Verified 06/26/13 19:59) Other rosuvastatin calcium [From Crestor] Allergy (Verified 06/26/13 19:59) Chest tightness Home Medications: Ambulatory Orders Medication Instructions Recorded ALPRAZolam [Xanax] 1 mg PO TID PRN PRN 06/26/13 Fluticasone 0.05% [Flonase Nasal 2 spray NASAL DAILY 06/26/13 Citra] Furosemide [Lasix] 40 mg PO DAILY 06/26/13 Hydroxyurea [Hydrea] 500 mg PO BID 06/26/13 Riboflavin 06/26/13 Simvastatin [Zocor] 10 mg PO QHS 06/26/13 Spironolactone [Aldactone] 25 mg PO DAILY 06/26/13 predniSONE tablet 10 mg PO DAILY@0800 06/26/13 - Family History Paternal - - The patient's father at the age of 73 with black lung. He was a gang miner. Patient's mother at age of 86 with a history of dementia and Alzheimer's disease. Smoking Status: Never smoker Tobacco Use: Non-smoker Review of Systems Constitutional: Denies: Chills, Fever, Weight Change Eyes: Denies: Pain, Vision Change HEENT: Denies: Difficulty Hearing, Difficulty Swallowing, Sinus Congestion Cardiovascular: Denies: Chest Pain, Palpitations Respiratory: Denies: Cough, Shortness of Breath Gastrointestinal: Denies: Diarrhea, Nausea, Vomiting Genitourinary: Denies: Dysuria, Hematuria Endocrine: Denies: Heat/ Cold Intolerance, Polydipsia, Polyuria Hematologic/ Lymphatic: Denies: Easy Bruising, Easy Bleeding - Physical Exam Vital Signs Temp Pulse Resp BP 96.8 F L 72 18 125/78 H 06/10/18 15:08 06/10/18 15:08 06/10/18 15:08 06/10/18 15:08 General: Alert, Oriented x3, Cooperative, No apparent distress, Well developed, Well nourished HEENT: Atraumatic, PERRLA, EOMI, Normocephalic Oral: Moist Mucosa Neck: No JVD Lungs: Normal air movement Abdomen: Non-Distended Extremities: No clubbing, No cyanosis, No edema, No Calf Tenderness, - - There are no open wounds or ulcerations. There are no significant skin changes in the lower extremities. There are no color changes. Dry, patchy, scaliness is noted on the heels. Skin: No rashes, No breakdown Wound Measurements and Assessment WC - Nurse 1 - General Ulcer Measurement Start: 06/05/18 11:51 Freq: Status: Active Protocol: Activity Type Activity Date Activity User E-Sign Co-Sign Detail Recorded Client Recorded Date Recorded By Document 06/10/18 15:08 [id number] 06/10/18 15:12 DL 06/10/18 15:08 Wound Center Nurse 1 [Edema Assessment] -Right Calf (cm) 32 -Right Ankle (cm) 22.2 -Left Calf (cm) 32 -Left Ankle (cm) 21.2 Neurological: Cranial nerves II-XII grossly intact, Neuro grossly intact Psych/Mental Status: Normal Affect, Appropriate, Alert and oriented to time, place, person, mood and affect Debridement Note Post-Debridement Measurements/Treatment WC - Nurse 2 - General Ulcer CM Notes Start: 06/05/18 11:51 Freq: Status: Active Protocol: Activity Type Activity Date Activity User E-Sign Co-Sign Detail Recorded Client Recorded Date Recorded By Document 06/05/18 12:28 [id number] 06/05/18 12:30 [email or web address] 06/05/18 12:28 Pain Scale: 0-10 Numeric Is Patient Pain Free? No Right Heel -Description Aching -Intensity 6 -Radiation Location n/a -Duration (hours) Chronic -Pain Behavior Facial Grimacing -Pain Aggravating Factors Walking -Alleviating Factors/Interventions Inactivity/ Resting -Effectiveness of Alleviating Factor/ Not effective Intervention Assessment/Plan Active Problems Heel pain, bilateral (Chronic) Atherosclerotic peripheral vascular disease of extremity (Chronic) Assessment: This is an 78-year-old female with multiple medical problems, as detailed above. It appears as though she was referred for evaluation relative to peripheral arterial occlusive disease. However, review of her history and thorough discussion of her symptoms reveals no evidence of significant arterial occlusive disease. She is able to walk at least 1 block without pain in her legs. She does not relate symptoms which would suggest intermittent claudication resulting from arterial occlusive disease. She experiences no leg pain at rest suggestive of arterial insufficiency. There are no specific physical findings which would suggest the presence of moderate or severe arterial occlusive disease. The patient currently is treated by her primary care physician with Plavix and aspirin which she takes orally on a daily basis, and which appears to be appropriate measures. Plan: No acute/new concerns at this time. The patient does not appear to suffer from any significant symptoms or manifestations of arterial occlusive disease. It has been recommended the patient continue to follow-up henceforth with her water carter, primary care physician, her credit review manager, and other physicians currently involved in her care. At present, there does not appear to be any indication for any additional measures related to arterial occlusive disease, given that the patient has asymptomatic, with no manifestations related to arterial disease. This note was generated with [employer] dictation software. It may contain incorrect words, spelling, and punctuation that were not noted in checking the note before signing.
--- NOTE | 2018-06-10 15:31 | HP.PCM_ITS ---
(1) Hypertension Status: Chronic Current Visit: No Code(s): I10 - Essential (primary) hypertension (2) Diabetes mellitus Status: Chronic Current Visit: No Qualifiers: Diabetes mellitus type: type 2 Code(s): E11.9 - Type 2 diabetes mellitus without complications (3) CHF (congestive heart failure) Status: Chronic Current Visit: No Code(s): I50.9 - Heart failure, unspecified (4) History of TIA (transient ischemic attack) Status: Chronic Current Visit: No Code(s): Z86.73 - Personal history of transient ischemic attack (TIA), and cerebral infarction without residual deficits (5) Chronic renal insufficiency, stage III (moderate) Status: Chronic Current Visit: No Code(s): N18.3 - Chronic kidney disease, stage 3 (moderate) (6) Anxiety Status: Chronic Current Visit: No Code(s): F41.9 - Anxiety disorder, unspecified (7) A-fib Status: Chronic Current Visit: No Code(s): I48.91 - Unspecified atrial fibrillation (8) Sleep apnea Status: Chronic Current Visit: No Code(s): G47.30 - Sleep apnea, unspecified (9) Arthritis Status: Chronic Current Visit: No Code(s): M19.90 - Unspecified osteoarthritis, unspecified site (10) GERD (gastroesophageal reflux disease) Status: Chronic Current Visit: No Code(s): K21.9 - Gastro-esophageal reflux disease without esophagitis (11) Depression Status: Chronic Current Visit: No Code(s): F32.9 - Major depressive disorder, single episode, unspecified (12) Hyperthyroidism Status: Chronic Current Visit: No Code(s): E05.90 - Thyrotoxicosis, unspecified without thyrotoxic crisis or storm (13) Peripheral neuropathy Status: Chronic Current Visit: No Code(s): G62.9 - Polyneuropathy, unspecified (14) Hyperlipidemia Status: Chronic Current Visit: No Code(s): E78.5 - Hyperlipidemia, unspecified (15) Giant cell arteritis Status: Chronic Current Visit: No Code(s): M31.6 - Other giant cell arteritis (16) Steroid dependence Status: Chronic Current Visit: No History of Present Illness Chief Complaint: Referred by Dr. Sam Quinonez, spring tier, for evaluation relative to possible lower extremity arterial occlusive disease History of Wound: This is an 78-year-old female who presented originally as a referral from her spring tier, Dr. Sam Quinonez. At the time of her presentation, the patient had no complaints, but for occasional patchy scaliness and dermatitis on her feet, and rare episodes of pain in her feet which are unrelated to time of day, position, activity, etc. She was referred for evaluation relative to possible peripheral arterial occlusive disease. She underwent a noninvasive lower extremity arterial study at the [facility], which was not available at the time of the patient's initial visit. Since that time, the results have been obtained, revealing the following: The right ankle- brachial index 1.57; the left ankle-brachial index 2.08; the right digital- brachial index 0.50; the left digital brachial index 0.61. The patient is under the care of her family doctor, a store administrative assistant, and Dr. Sam Quinonez, her derm atologist. The patient sleeps on a flat mattress at night. She experiences no swelling in her lower extremities. She has no history of lower extremity thrombophlebitis. When questioned specifically about symptoms of rest pain and intermittent claudication, which would be indicative of arterial occlusive disease, the patient denies any such symptoms. Review of medical records from 2012 reveals a noninvasive lower extremity arterial study which demonstrated evidence of arterial calcification, but no definitive evidence of an occlusive arterial process. A venous study, also from 2013, was normal bilaterally. Past Medical History Past Medical History: Chronic Problems Hypertension (Chronic) Diabetes mellitus (Chronic) CHF (congestive heart failure) (Chronic) History of TIA (transient ischemic attack) (Chronic) Chronic renal insufficiency, stage III (moderate) (Chronic) Anxiety (Chronic) A-fib (Chronic) Sleep apnea (Chronic) Arthritis (Chronic) GERD (gastroesophageal reflux disease) (Chronic) Depression (Chronic) Hyperthyroidism (Chronic) Peripheral neuropathy (Chronic) Hyperlipidemia (Chronic) Giant cell arteritis (Chronic) Steroid dependence (Chronic) Heel pain, bilateral (Chronic) Atherosclerotic peripheral vascular disease of extremity (Chronic) Surgical History: - - The patient is a AB 1 (spontaneous). 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 She has had sinus surgery in the past. She is undergone a total abdominal hysterectomy. She has had a cholecystectomy, and left foot surgery. Allergies/Adverse Reactions: Allergies acetaminophen [From Darvocet-N 100] Allergy (Verified 06/26/13 19:59) Other carvedilol [From Coreg] Allergy (Verified 06/26/13 19:59) Chest tightness diazepam [From Valium] Allergy (Verified 06/26/13 19:59) Other escitalopram oxalate [From Lexapro] Allergy (Verified 06/26/13 19:59) Other morphine Allergy (Verified 06/26/13 19:59) Rash niacin [From Niaspan Extended-Release] Allergy (Verified 06/26/13 19:59) Other Penicillins Allergy (Verified 06/26/13 19:59) Unknown prednisone Allergy (Verified 06/26/13 19:59) Other propoxyphene napsylate [From Darvocet-N 100] Allergy (Verified 06/26/13 19:59) Other rosuvastatin calcium [From Crestor] Allergy (Verified 06/26/13 19:59) Chest tightness Home Medications: Ambulatory Orders Medication Instructions Recorded ALPRAZolam [Xanax] 1 mg PO TID PRN PRN 06/26/13 Fluticasone 0.05% [Flonase Nasal 2 spray NASAL DAILY 06/26/13 [place]] Furosemide [Lasix] 40 mg PO DAILY 06/26/13 Hydroxyurea [Hydrea] 500 mg PO BID 06/26/13 Riboflavin 06/26/13 Simvastatin [Zocor] 10 mg PO QHS 06/26/13 Spironolactone [Aldactone] 25 mg PO DAILY 06/26/13 predniSONE tablet 10 mg PO DAILY@0800 06/26/13 - Family History Paternal - - The patient's father at the age of 73 with black lung. He was a blasting coal miner. Patient's mother at age of 86 with a history of dementia and Alzheimer's disease. Smoking Status: Never smoker Tobacco Use: Non-smoker Review of Systems Constitutional: Denies: Chills, Fever, Weight Change Eyes: Denies: Pain, Vision Change HEENT: Denies: Difficulty Hearing, Difficulty Swallowing, Sinus Congestion Cardiovascular: Denies: Chest Pain, Palpitations Respiratory: Denies: Cough, Shortness of Breath Gastrointestinal: Denies: Diarrhea, Nausea, Vomiting Genitourinary: Denies: Dysuria, Hematuria Endocrine: Denies: Heat/ Cold Intolerance, Polydipsia, Polyuria Hematologic/ Lymphatic: Denies: Easy Bruising, Easy Bleeding - Physical Exam Vital Signs Temp Pulse Resp BP 96.8 F L 72 18 125/78 H 06/10/18 15:08 06/10/18 15:08 06/10/18 15:08 06/10/18 15:08 General: Alert, Oriented x3, Cooperative, No apparent distress, Well developed, Well nourished HEENT: Atraumatic, PERRLA, EOMI, Normocephalic Oral: Moist Mucosa Neck: No JVD Lungs: Normal air movement Abdomen: Non-Distended Extremities: No clubbing, No cyanosis, No edema, No Calf Tenderness, - - There are no open wounds or ulcerations. There are no significant skin changes in the lower extremities. There are no color changes. Dry, patchy, scaliness is noted on the heels. Skin: No rashes, No breakdown Wound Measurements and Assessment WC - Nurse 1 - General Ulcer Measurement Start: 06/05/18 11:51 Freq: Status: Active Protocol: Activity Type Activity Date Activity User E-Sign Co-Sign Detail Recorded Client Recorded Date Recorded By Document 06/10/18 15:08 [id number] 06/10/18 15:12 DL 06/10/18 15:08 Wound Center Nurse 1 [Edema Assessment] -Right Calf (cm) 32 -Right Ankle (cm) 22.2 -Left Calf (cm) 32 -Left Ankle (cm) 21.2 Neurological: Cranial nerves II-XII grossly intact, Neuro grossly intact Psych/Mental Status: Normal Affect, Appropriate, Alert and oriented to time, place, person, mood and affect Debridement Note Post-Debridement Measurements/Treatment WC - Nurse 2 - General Ulcer CM Notes Start: 06/05/18 11:51 Freq: Status: Active Protocol: Activity Type Activity Date Activity User E-Sign Co-Sign Detail Recorded Client Recorded Date Recorded By Document 06/05/18 12:28 [id number] 06/05/18 12:30 JESSICA 06/05/18 12:28 Pain Scale: 0-10 Numeric Is Patient Pain Free? No Right Heel -Description Aching -Intensity 6 -Radiation Location n/a -Duration (hours) Chronic -Pain Behavior Facial Grimacing -Pain Aggravating Factors Walking -Alleviating Factors/Interventions Inactivity/ Resting -Effectiveness of Alleviating Factor/ Not effective Intervention Assessment/Plan Active Problems Heel pain, bilateral (Chronic) Atherosclerotic peripheral vascular disease of extremity (Chronic) Assessment: This is an 78-year-old female with multiple medical problems, as detailed above. It appears as though she was referred for evaluation relative to peripheral arterial occlusive disease. However, review of her history and thorough discussion of her symptoms reveals no evidence of significant arterial occlusive disease. She is able to walk at least 1 block without pain in her legs. She does not relate symptoms which would suggest intermittent claudication resulting from arterial occlusive disease. She experiences no leg pain at rest suggestive of arterial insufficiency. There are no specific physical findings which would suggest the presence of moderate or severe arterial occlusive disease. The patient currently is treated by her primary care physician with Plavix and aspirin which she takes orally on a daily basis, and which appears to be appropriate measures. Plan: No acute/new concerns at this time. The patient does not appear to suffer from any significant symptoms or manifestations of arterial occlusive disease. It has been recommended the patient continue to follow-up henceforth with her x ray electronics wireman, primary care physician, her spring tier, and other physicians currently involved in her care. At present, there does not appear to be any indication for any additional measures related to arterial occlusive disease, given that the patient has asymptomatic, with no manifestations related to arterial disease. This note was generated with [employer]nevo dictation software. It may contain incorrect words, spelling, and punctuation that were not noted in checking the note before signing.
== END 2018-06-10 23:59 ==
LOC: WC 15:00
PROVIDERS: Family Provider Family Medicine; PCP Family Medicine; Visit Provider Surgery
DX: E11.51 Type 2 diabetes mellitus with diabetic peripheral angiopathy without gangrene (principal); M79.671 Pain in right foot; M79.672 Pain in left foot; I13.0 Hypertensive heart and chronic kidney disease with heart failure and stage 1 through stage 4 chronic kidney disease, or unspecified chronic kidney disease; E11.22 Type 2 diabetes mellitus with diabetic chronic kidney disease; I50.9 Heart failure, unspecified; N18.3 Chronic kidney disease, stage 3 (moderate); Z86.73 Personal history of transient ischemic attack (TIA), and cerebral infarction without residual deficits; I48.2 Chronic atrial fibrillation; G47.30 Sleep apnea, unspecified; M19.90 Unspecified osteoarthritis, unspecified site; K21.9 Gastro-esophageal reflux disease without esophagitis; E11.42 Type 2 diabetes mellitus with diabetic polyneuropathy; Z79.52 Long term (current) use of systemic steroids; Z79.899 Other long term (current) drug therapy; F41.9 Anxiety disorder, unspecified; F32.9 Major depressive disorder, single episode, unspecified
CPT/HCPCS: 99211; 99213; G0463

== ENCOUNTER 2018-08-22 15:54 | Outpatient (RCR) | payer MEDICARE, SELFPAY ==
[2018-08-22 17:21] LABS: Hematocrit 36.2 % (37-47); Hemoglobin 11.9 g/dl (12.0-15.0); Mean Corp Hgb Conc 32.9 g/gl (32-36); Mean Corpuscular Hgb 39.7 pg (27.0-32.0); Mean Corpuscular Volume 120.7 fL (81-99); Platelet Count 564 K/mm3 (150-450); RBC Distribution Width CV 16.9 % (11.6-14.6); RBC Distribution Width SD 71.9 fl (35.1-43.9); White Blood Count 6.2 K/mm3 (4.4-11.0)
[2018-08-22 17:31] LABS: Scan Indicated on CBC? Y/N YES- FLAGS NOTED
[2018-08-22 17:32] LABS: Anion Gap 6 (5-15); BUN 25 mg/dL (7-18); BUN/Creat Ratio 21.2 RATIO (10-20); CRP < 2.90 mg/L (0.0-3.0); Calcium,Total 9.2 mg/dL (8.5-10.1); Chloride 100 mmol/L (98-107); Creatinine, Serum 1.18 mg/dL (0.55-1.02); EST Glomerular Filtration Rate 47 mL/min (>60); Est Glom Filt Rate - Afr Amer 57 mL/min (>60); Glucose 106 mg/dL (74-106); Potassium 3.4 mmol/L (3.5-5.1); Sodium Level 140 mmol/L (136-145)
[2018-08-22 17:43] LABS: Differential Comment SCANNED; Erythrocyte Sedimentation Rate 10 mm/hr (0-30)
== END 2018-09-08 23:59 ==
LOC: HHLAB 15:54
PROVIDERS: Family Provider Family Medicine; PCP Family Medicine; Referring Provider Family Medicine; Visit Provider Family Medicine
DX: M48.50XA Collapsed vertebra, not elsewhere classified, site unspecified, initial encounter for fracture (principal); M51.37 Other intervertebral disc degeneration, lumbosacral region; F45.42 Pain disorder with related psychological factors
CPT/HCPCS: 80048; 85027; 85652; 86140

== ENCOUNTER → 2019-07-01 13:59 | Outpatient (CLI) | payer MEDICARE, SELFPAY ==
[2019-06-12 11:01] VITALS: BMI 21.5
--- NOTE | 2019-07-01 14:07 | ECHOD_ITS ---
Reason For Study: DYSPNEA/SOB Procedure This was a 2D Doppler, Color Flow transthoracic echocardiogram. The study was technically difficult. Exam performed in department. Left Ventricle Normal LV size. Sigmoid septum. Left ventricular systolic function is normal. The estimated ejection fraction is 55 %. Diastolic function is indeterminate. No regional wall motion abnormalities noted. Right Ventricle Normal RV size. Normal systolic function. Atria Normal left atrium. Normal right atrium. No doppler evidence for ASD. Mitral Valve There is mild mitral annular calcification. Extension of the mitral annular calcification onto the base of the posterior mitral valve leaflet. Trivial mitral valve insufficiency. Tricuspid Valve Normal tricuspid valve. Trivial tricuspid valve insufficiency. Right ventricular systolic pressure estimated to be 28 mmHg. Aortic Valve Trisinus/trileaflet aortic valve. Mild diffuse aortic valve thickening. Pulmonic Valve The pulmonic valve is not well visualized. Mild (1+) pulmonic valve insufficiency. Great Vessels Normal sized aortic root. Calcified aortic root. Pericardium/Pleural No pericardial effusion. MMode/2D Measurements & Calculations LVIDd: 4.0 cm IVSd: 1.2 cm Ao root diam: 3.0 cm LVIDs: 2.5 cm LVPWd: 1.1 cm RVDd: 3.4 cm FS: 38.5 % LAV(MOD-bp): 36.6 ml LA A4 area: 13.7 cm2 LA dimension(2D): 3.4 cm LAV(MOD-bp) Indexed: 23.4 ml/m2 LAV(MOD-sp2): 31.2 ml LAV(MOD-sp4): 35.7 ml Time Measurements MV dec time: 0.30 sec Doppler Measurements & Calculations MV E max oliver: 48.9 cm/sec Lat Peak E' Oliver: 2.8 cm/sec Med Peak E' Oliver: 3.4 cm/sec MV A max oliver: 93.4 cm/sec E/E' lat: 17.2 E/E' med: 14.6 MV E/A: 0.52 Ao V2 max: 92.0 cm/sec LV V1 max: 72.2 cm/sec PA V2 max: 80.8 cm/sec Ao max P.4 mmHg LV V1 max P.1 mmHg TR max oliver: 248.2 cm/sec TR max P.6 mmHg Interpretation Summary The study was technically difficult. Left ventricular systolic function is normal. The estimated ejection fraction is 55 %. Sigmoid septum. There is mild mitral annular calcification. Extension of the mitral annular calcification onto the base of the posterior mitral valve leaflet. Trivial mitral valve insufficiency. Trivial tricuspid valve insufficiency. Mild diffuse aortic valve thickening. Mild (1+) pulmonic valve insufficiency. Calcified aortic root. Right ventricular systolic pressure estimated to be 28 mmHg. Diastolic function is indeterminate. Ordering Physician: León Ramires Referring Physician: Vince Herrera Performed By: Abbey Boo, GOKULCS, RVT
== END ==
LOC: CVS 14:07
PROVIDERS: Family Provider Family Medicine; PCP Family Medicine; Referring Provider Internal Medicine Cardiovascular Disease; Visit Provider Internal Medicine Cardiovascular Disease
DX: G47.33 Obstructive sleep apnea (adult) (pediatric) (principal)
CPT/HCPCS: 93306

== ENCOUNTER → 2019-12-25 15:02 | Outpatient (CLI) | payer MEDICARE, SELFPAY ==
[2019-12-25 13:05] VITALS: BMI 23.3
[2019-12-25 15:25] LABS: Absolute Lymphocyte Count 0.73 X10^3/uL (0.83-4.51); Absolute Neutrophil Count 6.9 X10^3/uL (2.0-7.7); Basophil# 0.03 X10^3/uL; Basophil% 0.4 % (0-1); Eosinophil# 0.06 X10^3/uL; Eosinophils% 0.7 % (0-5); Hematocrit 35.1 % (37-47); Hemoglobin 11.7 g/dL (12.0-15.0); Lymphocyte # 0.73 X10^3/ul (4.0); Lymphocyte % 8.6 % (19-41); Mean Corp Hgb Conc 33.3 g/dL (32-36); Mean Corpuscular Hgb 37.5 pg (27.0-32.0); Mean Corpuscular Volume 112.5 fL (81-99); Mean Platelet Vol. 9.6 fl (6.2-12.0); Monocyte# 0.68 X10^3/uL; NRBC Flagged by Analyzer 0 % (0-5); Neutrophil # 6.91 X10^3/uL (2.7-7.7); Neutrophil % 81.8 % (47-70); Platelet Count 690 K/mm3 (150-450); RBC Distribution Width CV 14.6 % (11.6-14.6); RBC Distribution Width SD 59.2 fl (35.1-43.9); Red Blood Count 3.12 M/mm3 (4.2-5.4); White Blood Count 8.5 K/mm3 (4.4-11.0)
[2019-12-25 15:55] LABS: Anion Gap 3 (5-15); BUN 25 mg/dL (7-18); BUN/Creat Ratio 24.5 RATIO (10-20); Calcium,Total 8.7 mg/dL (8.5-10.1); Chloride 103 mmol/L (98-107); Creatinine, Serum 1.02 mg/dL (0.55-1.02); EST Glomerular Filtration Rate 55 mL/min (>60); Est Glom Filt Rate - Afr Amer 67 mL/min (>60); Glucose 108 mg/dL (74-106); Potassium 3.8 mmol/L (3.5-5.1); Sodium Level 138 mmol/L (136-145); T4 Free Direct 0.94 ng/dL (0.76-1.46); Thyroid Stim Hormone (TSH) 2.12 uIU/mL (0.358-3.74)
== END ==
PROVIDERS: PCP Family Medicine; Referring Provider Nurse Practitioner Family; Visit Provider Nurse Practitioner Family
DX: R53.83 Other fatigue (principal); R07.9 Chest pain, unspecified; I10 Essential (primary) hypertension
CPT/HCPCS: 36415; 80048; 84439; 84443; 85025

== ENCOUNTER 2020-07-09 10:28 | Outpatient (RCR) | payer MEDICARE, SELFPAY ==
[2019-12-25 13:05] VITALS: BMI 23.3
== END 2020-07-09 23:59 ==
LOC: IMMUN 10:28
PROVIDERS: Visit Provider Family Medicine
DX: Z23 Encounter for immunization (principal)
CPT/HCPCS: 0011A; 0012A; 91301

== ENCOUNTER → 2020-10-27 12:27 | Outpatient (CLI) | payer MEDICARE, SELFPAY ==
[2020-09-09 13:47] VITALS: BMI 23.3
--- NOTE | 2020-10-27 15:28 | NEURO_ITS ---
NCS and/or EMG Patient Report Ordering Doctor: Winnie Soliman DATE OF SERVICE: 10/27/20 Kaylee Rodríguez presents for electrodiagnostic testing of the upper limbs. She reports pain, primarily around the left wrist with weakness. She has intermittent neck pain. Electrodiagnostic findings: Median motor nerve demonstrates normal distal latency, amplitude and conduction velocity on the left side. Right median motor nerve demonstrates normal distal latency and amplitude with reduction of conduction velocity. Normal ulnar motor responses noted bilaterally. Mildly prolonged median sensory latency at the wrist bilaterally. On needle EMG, all muscles tested in the upper limbs showed no evidence of denervation with normal motor unit action potentials. Electrodiagnostic impression: This is an abnormal study in the upper limbs 1. Electrodiagnostic findings demonstrate bilateral median mononeuropathy. T his is consistent with a mild bilateral carpal tunnel syndrome.
== END ==
PROVIDERS: PCP Registered Nurse; Referring Provider Orthopaedic Surgery; Visit Provider Orthopaedic Surgery
DX: R20.0 Anesthesia of skin (principal); R20.2 Paresthesia of skin; M85.80 Other specified disorders of bone density and structure, unspecified site
CPT/HCPCS: 95886; 95913

== ENCOUNTER → 2021-12-16 | Outpatient (CLI) | payer MEDICARE, SELFPAY ==
[2021-12-16 15:12] LABS: Erythrocyte Sedimentation Rate 26 mm/hr (0-30)
[2021-12-16 17:48] LABS: ALB/GLOB Ratio 1.1 RATIO (0.9-2.4); AST(SGOT) 15 U/L (15-37); Alanine Aminotransfer ALT/SGPT 20 U/L (13-56); Albumin, Serum 3.8 g/dL (3.2-5.0); Alkaline Phosphatase 65 U/L (45-117); Anion Gap 7 (5-15); BUN 23 mg/dL (7-18); BUN/Creat Ratio 21.3 RATIO (10-20); CRP 4.49 mg/L (0.0-3.0); Calcium,Total 9.2 mg/dL (8.5-10.1); Chloride 101 mmol/L (98-107); Creatinine, Serum 1.08 mg/dL (0.55-1.02); EST Glomerular Filtration Rate 51 mL/min (>60); Est Glom Filt Rate - Afr Amer 62 mL/min (>60); Globulin 3.5 g/dL (2.2-4.2); Glucose 95 mg/dL (74-106); Potassium 4.4 mmol/L (3.5-5.1); Protein, Total 7.3 g/dL (6.4-8.2); Sodium Level 137 mmol/L (136-145)
== END | disposition home or self-care (01) ==
LOC: MTLAB 13:32
PROVIDERS: PCP Registered Nurse; Referring Provider Internal Medicine Rheumatology; Visit Provider Internal Medicine Rheumatology
DX: M31.6 Other giant cell arteritis (principal); M06.4 Inflammatory polyarthropathy; I13.0 Hypertensive heart and chronic kidney disease with heart failure and stage 1 through stage 4 chronic kidney disease, or unspecified chronic kidney disease; I50.30 Unspecified diastolic (congestive) heart failure; E11.42 Type 2 diabetes mellitus with diabetic polyneuropathy; E11.22 Type 2 diabetes mellitus with diabetic chronic kidney disease; I48.0 Paroxysmal atrial fibrillation; D47.3 Essential (hemorrhagic) thrombocythemia; M79.7 Fibromyalgia; G56.03 Carpal tunnel syndrome, bilateral upper limbs; S68.110A Complete traumatic metacarpophalangeal amputation of right index finger, initial encounter; N18.9 Chronic kidney disease, unspecified; F32.9 Major depressive disorder, single episode, unspecified; E03.9 Hypothyroidism, unspecified; F43.10 Post-traumatic stress disorder, unspecified; Z79.52 Long term (current) use of systemic steroids; Z86.73 Personal history of transient ischemic attack (TIA), and cerebral infarction without residual deficits
CPT/HCPCS: 36415; 80053; 85652; 86140

== ENCOUNTER → 2023-09-27 | Outpatient (CLI) | payer MEDICARE, SELFPAY ==
--- NOTE | 2023-09-27 14:04 | CDU_ITS ---
Reason For Study: Lightheadedness Rt. Velocities/BP Lt. Velocities/BP Prox CCA 79.9/11 cm/sec. Prox CCA 116.2/10.2 cm/sec. Mid CCA 94.1/14.2 cm/sec. Mid CCA 83.1/12.7 cm/sec. Dist CCA 58.9/10.6 cm/sec. Dist CCA 86.4/11.7 cm/sec. Prox ICA 53.4/12.7 cm/sec. Prox ICA 57.2/10.6 cm/sec. Mid ICA 70/12.5 cm/sec. Mid ICA 83/19.2 cm/sec. Dist ICA 83.6/18.9 cm/sec. Dist ICA 125.3/34 cm/sec. Rt. ICA/CCA = 0.9. Lt. ICA/CCA = 1.5. Prox ECA 46/0.0 cm/sec. Prox ECA 87.5/4 cm/sec. Rt. Vert. 55.6/9.5 cm/sec. Lt. Vert. 65.8/14.2 cm/sec. Right Extracranial There is homogeneous, smooth atherosclerotic plaque noted in the right common carotid artery. There is heterogeneous, irregular atherosclerotic plaque noted in the right internal carotid artery. There is heterogeneous, irregular atherosclerotic plaque noted in the right external carotid artery. Antegrade flow is noted in the right vertebral artery. Left Extracranial There is homogeneous, smooth atherosclerotic plaque noted in the left common carotid artery. There is heterogeneous, irregular atherosclerotic plaque noted in the left internal carotid artery. There is heterogeneous, irregular atherosclerotic plaque noted in the left external carotid artery. Antegrade flow is noted in the left vertebral artery. Procedure Carotid Duplex 95504. This is a Carotid Duplex examination using B-mode, color flow and specral Doppler. Exam performed in department. VL/Carotid Duplex Ultrasound Interpretation Summary Mild (<50%) stenosis right extracranial internal carotid. Moderate (50-69%) stenosis left extracranial internal carotid. Patent and antegrade vertebrals bilaterally. Ordering Physician: Cindy Vanegas Referring Physician: Pia Villarreal Performed By: Ashley Craig RVT and Student
--- NOTE | 2023-09-27 14:05 | ART_ITS ---
Reason For Study: PVD Procedure A bilateral lower extremity continuous wave Doppler with analog waveform analysis,segmental pressures,and ankle brachial indexes without exercise. Left Segmental Pressures Left brachial= 138mmHg. Left posterior tibial artery = 163mmHg. Left dorsalis pedis artery = 154mmHg. Left digit = 79 mmHg. The left dorsalis pedis waveforms are biphasic. The left posterior tibial artery waveforms are triphasic. Right Segmental Pressures Right brachial= 133mmHg. Right posterior tibial artery = >254mmHg. Right dorsalis pedis artery = 136mmHg. Right digit = 80 mmHg. The right dorsalis pedis waveforms are triphasic. The right posterior tibial artery waveforms are biphasic. Indices The right ankle brachial index by the dorsalis pedis is 0.99. The right ankle brachial index by the posterior tibial artery is NC. The right digital-brachial index is 0.58. The left ankle brachial index by the dorsalis pedis is 1.12. The left ankle brachial index by the posterior tibial artery is 1.18. The left digital-brachial index is 0.57. VL/Lower Ext Art Exam w/o Exercis Interpretation Summary Right TITO 0.99, mild arterial insufficiency. Doppler/PVR waveforms of the right normal at rest. TBI and digit waveforms diminished. Left TITO 1.18, normal. Doppler/PVR waveforms of the left ankle normal at rest. TBI diminished, pedal/digit disease vs spasm Ordering Physician: Karla Staples Referring Physician: Pia Villarreal Performed By: Ashley Craig RVT and Student
== END | disposition home or self-care (01) ==
PROVIDERS: PCP Registered Nurse; Referring Provider Podiatrist; Visit Provider Podiatrist
DX: I73.9 Peripheral vascular disease, unspecified (principal); R42 Dizziness and giddiness; I10 Essential (primary) hypertension; E78.2 Mixed hyperlipidemia
CPT/HCPCS: 93880; 93923

== ENCOUNTER → 2023-11-21 | Outpatient (CLI) | payer MEDICARE, SELFPAY ==
--- NOTE | 2023-11-21 10:03 | VDLE_ITS ---
Reason For Study: Right leg swelling RIGHT LEFT CFV is compressible, spontaneous, phasic, CFV is compressible, spontaneous, phasic, competent and demonstrates normal competent, and demonstrates normal augmentation. augmentation. FV is compressible, spontaneous, phasic, competent and demonstrates normal augmentation. POP V is compressible, spontaneous, phasic, competent and demonstrates normal augmentation. T/P Trunk is compressible. PTV is compressible. RT PerV is compressible. SFJ is competent and measures 0.65 x 0.70 cm. GSV proximal thigh measures 0.43 x 0.41 cm. GSV at knee measures 0.41 x 0.40 cm. GSV INCOMPETENT throughout for greater than 0.5 seconds. ASV proximal calf is INCOMPETENT for greater than 0.5 seconds and measures 0.24 x 0.23 cm. ASV mid calf is INCOMPETENT for greater than 0.5 seconds and measures 0.18 x 0.18 cm. SSV proximal calf is INCOMPETENT for greater than 0.5 seconds and measures 0.12 x 0.13 cm. Procedure This is a venous duplex using B-mode, color flow and spectral Doppler. Exam performed in department. Patient was scanned in reverse Trendelenburg position during reflux assessment. VL/Venous Duplex US, Unilateral Interpretation Summary Deep veins of the right lower extremity are patent and compressible segmentally . There is no evidence of right lower extremity deep vein thrombosis. The right great sapheno us vein appears patent and compressible segmentally. Positive for reflux in the right great saphenous vein throughout, accessory sap henous vein, small saphenous vein. Ordering Physician: Yareli Akins Referring Physician: Pia Villarreal Performed By: Ashley Craig RVT
[2023-11-21 12:32] LABS: Anion Gap 6 (5-15); BUN 20 mg/dL (7-18); Calcium,Total 8.9 mg/dL (8.5-10.1); Chloride 106 mmol/L (98-107); Creatinine, Serum 0.95 mg/dL (0.55-1.02); EST Glomerular Filtration Rate 59 mL/min (>60); Est Glom Filt Rate - Afr Amer 72 mL/min (>60); Glucose 89 mg/dL (74-106); Potassium 3.8 mmol/L (3.5-5.1); Sodium Level 139 mmol/L (136-145)
== END | disposition home or self-care (01) ==
LOC: CVS 09:57
PROVIDERS: PCP Registered Nurse; Referring Provider Physician Assistant; Visit Provider Physician Assistant
DX: N18.30 Chronic kidney disease, stage 3 unspecified (principal); Z87.39 Personal history of other diseases of the musculoskeletal system and connective tissue; R60.0 Localized edema
CPT/HCPCS: 36415; 80048; 93971

== ENCOUNTER → 2023-11-29 | Outpatient (CLI) | payer MEDICARE, SELFPAY ==
[2023-11-29] MEDS: 0.9% Normal Saline (500mL Bag) 500 ML IV (14:15)
[2023-11-29 14:29] VITALS: BP 149/45; PULSE 66; RESP 18; TEMP 36.3; O2SAT 95; BMI 25.0
--- NOTE | 2023-11-29 15:14 | CT_ITS ---
STUDY: CTA CHEST, ABDOMEN T PELVIS WITH CONTRAST REASON FOR EXAM: Female, 83 years old. eval for thoracoabdominal aneurysm RADIATION DOSAGE (If Supplied By Facility): CTDIvol = ( 6.06 ) mGy, DLP = ( 411.66 ) mGycm TECHNIQUE: Transaxial imaging was performed following intravenous administration of IV 75mL [id number]-300. Multiplanar coronal and sagittal images were reformatted. Individualized dose optimization techniques were used for this CT. COMPARISON: No relevant priors. FINDINGS: CHEST Findings suggestive of scarring in the posterior aspect of the right middle lobe abutting the right minor fissure with bronchiectasis and volume loss. Mild scarring at the lung bases slightly worse on the left side. There is also evidence of scarring of both lung apices. There is no demonstrated pleural abnormality. There are calcifications of the coronary arteries. Normal mediastinum. Normal hilar regions. Normal unenhanced pulmonary arteries. There is atherosclerotic calcification of the aortic arch with tortuosity and elongation of the aortic arch and descending thoracic aorta. There is tortuosity of the descending thoracic aorta at the diaphragmatic hiatus. No aneurysmal dilatation is seen. There is demineralization of the thoracic spine. Increased kyphosis. History of prior vertebroplasty of the T10 and T12 vertebrae. There is no demonstrated abnormality of the visualized upper abdomen. ABDOMEN Normal liver. The patient is status post cholecystectomy. Normal spleen. Normal pancreas. Normal bilateral adrenal glands. Mild bilateral renal cortical thinning. Normal visualized stomach. Normal small intestine. There are multiple colonic diverticula consistent with diverticulosis. The appendix is visualized and appears normal. There is diffuse atherosclerotic calcification of the abdominal aorta and its major visceral branches, without a demonstrated aneurysm. Normal inferior vena cava. Normal retroperitoneum. There is a small umbilical hernia containing fat. Almost complete collapse of the L1 vertebrae with 50% loss of height of the L2 vertebrae. PELVIS Distended urinary bladder. The patient is status post hysterectomy. There is no pelvic fluid. There is no pelvic lymphadenopathy or mass lesion. There is diffuse atherosclerotic calcification of the pelvic arteries. CT/CTA Chst, Abd, Pel W and/or WO IMPRESSION: No evidence of thoracic or aortic aneurysm. Diffuse atherosclerotic plaque formation and tortuosity at the level of the diaphragmatic hiatus. Electronically Signed: Malcolm Hernandez MD at 9:35 EDT ,
[2023-11-29 15:28] VITALS: BP 152/50; PULSE 71; RESP 18; O2SAT 97
[2023-11-29 15:36] LABS: Absolute Lymphocyte Count 0.67 X10^3/uL (0.83-4.51); Absolute Neutrophil Count 4.7 X10^3/uL (2.0-7.7); Basophil# 0.01 X10^3/uL; Basophil% 0.2 % (0-1); Differential Indicated SCAN CRITERIA MET; Eosinophil# 0.02 X10^3/uL; Eosinophils% 0.3 % (0-5); Hematocrit 26.9 % (37-47); Hemoglobin 8.8 g/dL (12.0-15.0); Lymphocyte # 0.67 X10^3/ul (0.83-4.51); Lymphocyte % 11.1 % (19-41); Mean Corp Hgb Conc 32.7 g/dL (32-36); Mean Corpuscular Hgb 42.3 pg (27.0-32.0); Mean Corpuscular Volume 129.3 fL (81-99); Mean Platelet Vol. 10.3 fl (6.2-12.0); Monocyte# 0.48 X10^3/uL; Monocyte% 7.9 % (0-10); NRBC Flagged by Analyzer 0 % (0-5); Neutrophil # 4.74 X10^3/uL (2.7-7.7); Neutrophil % 78.5 % (47-70); POSITIVE MORPHOLOGY YES; Platelet Count 448 K/mm3 (150-450); RBC Distribution Width CV 17.9 % (11.6-14.6); Red Blood Count 2.08 M/mm3 (4.2-5.4)
[2023-11-29 16:37] LABS: Anisocytosis 2+; Differential Comment SCANNED; Macrocytosis 1+; Microcytosis 1+
== END | disposition home or self-care (01) ==
PROVIDERS: Nurse Practitioner; PCP Registered Nurse; Referring Provider Physician Assistant; Visit Provider Physician Assistant
DX: D47.3 Essential (hemorrhagic) thrombocythemia (principal)
CPT/HCPCS: 71275; 74174; 85025; J7040; Q9967

== ENCOUNTER 2024-02-11 15:05 | Emergency (ER) | payer MEDICARE, SELFPAY ==
[2024-02-11 15:06] VITALS: BP 132/58; PULSE 61; RESP 16; TEMP 36.1; O2SAT 96
--- NOTE | 2024-02-11 15:16 | EDS_ITS ---
HPI HPI - Fall History of Present Illness Chief Complaint: Fall PFSH PFSH Medical History Mild coronary artery disease Essential hypertension History of seizures DDD (degenerative disc disease) Hypothyroidism PTSD (post-traumatic stress disorder) Mixed hyperlipidemia [facility] treated with BiPAP Paroxysmal atrial fibrillation Chronic diastolic heart failure Type 2 diabetes mellitus Atherosclerotic peripheral vascular disease of extremity Steroid dependence Giant cell arteritis Peripheral neuropathy Depression GERD (gastroesophageal reflux disease) Arthritis Anxiety Chronic renal insufficiency, stage III (moderate) History of TIA (transient ischemic attack) Home Medications ?Medication ?Instructions ?Recorded ?Last Taken ?Type alprazolam 1 mg tablet 1 mg PO TID PRN PRN Anxiety 06/26/13 Unknown History furosemide 40 mg tablet 40 mg PO DAILY 06/26/13 Unknown History simvastatin 10 mg tablet 10 mg PO QHS 06/26/13 Unknown History spironolactone 25 mg tablet 25 mg PO DAILY 06/26/13 Unknown History nadolol 20 mg tablet 20 mg PO DAILY 02/21/19 Unknown History nitroglycerin 0.4 mg sublingual 0.4 mg sublingual Q5-15M PRN chest 02/21/19 Unknown History tablet pain prednisone 5 mg tablet 5 mg PO DAILY 02/21/19 Unknown History aspirin 81 mg tablet,delayed 81 mg PO DAILY 06/12/19 Unknown History release (Adult Low Dose Aspirin) cholecalciferol (vitamin D3) 1,250 50,000 unit PO QWEEK 06/12/19 Unknown History mcg (50,000 unit) capsule vitamin B complex (B 1 tab PO DAILY 06/12/19 Unknown History Complex-Vitamin B12 tablet) albuterol sulfate 2.5 mg/3 mL 2.5 mg inhalation Q4-6H PRN sob 09/04/23 Unknown History (0.083 %) solution for nebulization fluoxetine 20 mg tablet 40 mg PO DAILY 09/04/23 Unknown History omega-3 fatty acids 1,000 mg 1,000 mg PO DAILY 09/04/23 Unknown History capsule fluticasone propionate 50 2 spray NASAL DAILY PRN congestion 09/05/23 Unknown History mcg/actuation nasal spray,suspension hydroxyurea 500 mg capsule 1,000 mg PO Q12H 09/05/23 Unknown History omeprazole 20 mg tablet,delayed 20 mg PO DAILY 10/31/23 Unknown History release Allergy/AdvReac Type Severity Reaction Status Date / Time diazepam (From Valium) Allergy Intermediate Other Verified 02/11/24 15:06 Penicillins Allergy Intermediate Rash Verified 02/11/24 15:06 acetaminophen (From Allergy Other Verified 02/11/24 15:06 Darvocet-N 100) carvedilol (From Coreg) Allergy Chest Verified 02/11/24 15:06 tightness escitalopram oxalate (From Allergy Other Verified 02/11/24 15:06 Lexapro) morphine Allergy Rash Verified 02/11/24 15:06 niacin (From Niaspan Allergy Other Verified 02/11/24 15:06 Extended-Release) propoxyphene napsylate (From Allergy Other Verified 02/11/24 15:06 Darvocet-N 100) rosuvastatin calcium (From Allergy Chest Verified 02/11/24 15:06 Crestor) tightness citalopram (From Celexa) AdvReac Severe increased Verified 02/11/24 15:06 anxiety gabapentin AdvReac Severe Mental Verified 02/11/24 15:06 status change methadone AdvReac Severe mental Verified 02/11/24 15:06 status change prednisone AdvReac Severe Other Verified 02/11/24 15:06 duloxetine (From Cymbalta) AdvReac anxiety Verified 02/11/24 15:06 Family History Mother CAD (coronary artery disease) Father CAD (coronary artery disease) CVA (cerebral vascular accident) Diabetes Brother Diabetes Sister Diabetes Surgical History History of total hysterectomy History of cataract surgery History of bilateral oophorectomy History of cholecystectomy History of nasal septoplasty History of foot surgery History of nasal polypectomy Social History Smoking Status: Never smoker alcohol intake: never substance use type: does not use caffeine: Yes Type: coffee Number of servings: 1 EXAM Physical Exam Const Vital Signs: 02/11/24 15:06 Temperature 97 F L Temperature Source Temporal Pulse Rate 61 Respiratory Rate 16 Blood Pressure 132/58 H Blood Pressure Mean 82 Pulse Ox 96 Oxygen Delivery Method Room Air MDM MDM MDM Narrative Medical decision making narrative: HISTORY OF PRESENT ILLNESS: 83-year-old female presents with fall. No she fell 5 days ago. Notes left hip and buttock pain. Notes hitting left side of her head and left side of her neck. Denies loss of consciousness, denies vomiting. REVIEW OF SYSTEMS: Pertinent positives: Left hip, buttock pain Pertinent negatives: Vomiting, focal weakness, fever PHYSICAL EXAM: Nursing triage notes reviewed, Vital signs reviewed Primary Survey Airway: Intact Breathing: Bilateral breath sounds Circulation: Palpable bilateral femorals, Palpable bilateral radial, Palpable bilateral DP and Palpable bilateral PT Disability / Spine precautions GCS Score: Eye Openin Verbal Response: 5 Motor Response: 6 Secondary Survey Constitutional: Please see MDM Head: Atraumatic, Midface stable, NO jaw malocclusion, No Cephalohematoma, and No Lacerations noted, TTP over left head/neck area Eye: Pupils equal round and reactive to light, Extraocular muscles intact and No periorbital ecchymosis or stepoff, no evidence of entrapment ENT: Oropharynx clear, no lacerations, no hemotympanum, no raccoon eyes or lebron sign Cervical spine / Neck: No cervical spine bony tenderness, crepitance, or stepoff deformity Trachea midline. TTP over left neck Lungs: Clear to auscultation, No asymmetric rise and No crepitus, no flail chest Cardiac: Regular rate and rhythm and No murmurs Abdomen: Soft, Nontender and No rebound Pelvis: Pelvis stable to compression : No evidence of genital injury Back: No midline bony tenderness to thoracic/lumbar/sacral spines Neuro: At baseline, intact strength and sensation in bilateral upper and lower extremities. 2+ patellar reflexes bilaterally. Extremities: NO gross Deformities, TTP over left hip Psych: Normal affect Nursing triage notes reviewed, Vital signs reviewed MEDICAL DECISION MAKING: Chief Complaint: Left hip/buttock pain External records reviewed: Factors affecting care: Type 2 diabetes, hypertension, CAD, GERD Social determinants of health: elderly History obtained from others: none Consults: none [facility] Narrative: Patient was hemodynamically stable, afebrile and nontoxic-appearing. Primary secondary trauma surveys concerning for the following differential diagnosis I considered the following differential diagnosis: Intracranial injury, cervical spine injury, traumatic injury to the lumbar spine, traumatic injury to the left hip ALL IMAGES (IF OBTAINED) HAVE BEEN PERSONALLY REVIEWED AND INTERPRETED BY MYSELF. X-ray of the left hip and pelvis was read and reviewed person myself showed no evidence of obvious bony abnormality. Radiologist agreed my interpretation CT scans of the head, cervical spine and lumbar spine showed no evidence of acute fracture however lumbar spine showed the following: IMPRESSION: Old fractures of T10 and T12 status post kyphoplasty as well as possible vertebroplasty of L3. There are also wedging of superior endplates of T11, L2 and L1 without definitive acute fracture lines of indeterminate chronicity. In the absence of prior films for comparison, MRI would be helpful for more definitive aging of the injuries. There is no acute traumatic injury identified on imaging. Incidental findings are discussed with the patient. She is able to ambulate in the ED. Support for discharge home with instructions take Tylenol, ibuprofen, lidocaine patches and to return if symptoms change or worsen. The patient and/or family, caregivers express understanding. The patient and/or family, caregivers agrees with the plan. Shared decision making: I will have a discussion with the patient and or visitors regarding risk/benefits of further testing or admission. They will be made aware of of the risk/benefits inherent in this decision they will be given the opportunity to voice understanding. Total critical care time today provided was at least 0 minutes. This excludes separately billable procedures. Critical care time (if documented) is secondary to the patient having high probability of clinically significant/life threatening deterioration in the patient's condition which required my urgent intervention. Impression: 1. Fall 2. Hip pain Dispo: Discharge home This note was generated with Taykey dictation software. It may contain incorrect words, spelling, and punctuation that were not noted in review of the chart prior to signing. Radiography Diagnostic Testing: Clinical Impression(s) from Imaging Studies Brain CT 02/11/24 15:22 IMPRESSION: Chronic involutional changes of the brain. No acute abnormality. Electronically Signed: Bahman Mayorga MD at 16:40 EDT , Cervical Spine CT 02/11/24 15:22 IMPRESSION: No evidence of acute cervical spinal fracture or spondylolisthesis. Multilevel degenerative changes and broad-based disc bulges at C5-C6 and C6-C7. Electronically Signed: Bahman Mayorga MD at 16:37 EDT , Lumbar Spine CT 02/11/24 15:22 IMPRESSION: Old fractures of T10 and T12 status post kyphoplasty as well as possible vertebroplasty of L3. There are also wedging of superior endplates of T11, L2 and L1 without definitive acute fracture lines of indeterminate chronicity. In the absence of prior films for comparison, MRI would be helpful for more definitive aging of the injuries. Electronically Signed: John Adams MD at 17:14 EDT , Hip/Pelvis X-Ray 02/11/24 16:00 IMPRESSION: Normal x-ray examination of the pelvis and hip. Electronically Signed: Bahman Mayorga MD at 16:44 EDT , Discharge Plan Triage Chief Complaint: Fall ED Provider: Damian Hernandez Dx/Rx/DC Orders Clinical Impression: Contusion of hip Instructions: Bone Contusion, ED Hip Contusion, ED Fall Prevention Prescriptions: No Action aspirin [Adult Low Dose Aspirin] 81 mg tablet,delayed release (DR/EC) 81 mg PO DAILY vitamin B complex [B Complex-Vitamin B12] Tablet 1 tab PO DAILY cholecalciferol (vitamin D3) 50,000 unit capsule 50,000 unit PO QWEEK fluoxetine 20 mg tablet 40 mg PO DAILY nitroglycerin 0.4 mg tablet, sublingual 0.4 mg SUBLINGUAL Q5-15M PRN (Reason: chest pain) prednisone 5 mg tablet 5 mg PO DAILY nadolol 20 mg tablet 20 mg PO DAILY omega-3 fatty acids 1,000 mg capsule 1,000 mg PO DAILY albuterol sulfate 2.5 mg /3 mL (0.083 %) solution for nebulization 2.5 mg inhalation Q4-6H PRN (Reason: sob) omeprazole 20 mg tablet,delayed release (DR/EC) 20 mg PO DAILY furosemide 40 MG tablet 40 mg PO DAILY alprazolam 1 MG tablet 1 mg PO TID PRN PRN (Reason: Anxiety) simvastatin 10 MG tablet 10 mg PO QHS spironolactone 25 MG tablet 25 mg PO DAILY fluticasone propionate 50 mcg/actuation spray,suspension 2 spray NASAL DAILY PRN (Reason: congestion) hydroxyurea 500 mg capsule 1,000 mg PO Q12H Rx Instructions: mwf bid Primary Care Provider: Pia Villarreal NP Referrals: Pia Villarreal NP, [employer] [Primary Care Provider] - Activity Restrictions/Additional Instructions: Thank you for trusting us with your care today! Please take Tylenol (2 pills, 650 mg), ibuprofen (2 pills, 400 mg) every 6 hours as needed for pain and fever control. Please return to the emergency department if your symptoms change or worsen. Please follow with your primary care physician for further outpatient evaluation and management. Print Language: Gambian Disposition Disposition: Home, Self Care
--- NOTE | 2024-02-11 15:22 | CT_ITS ---
STUDY: CT BRAIN WITHOUT CONTRAST REASON FOR EXAM: Female, 83 years old. head trauma RADIATION DOSAGE (If Supplied By Facility): CTDIvol = ( 44.99 ) mGy, DLP = ( 762.36 ) mGycm TECHNIQUE: Transaxial CT imaging of the brain was performed without administration of intravenous contrast material. Individualized dose optimization techniques were used for this CT. COMPARISON: No relevant priors. FINDINGS: Normal soft tissue structures. Normal calvarium. Normal size ventricles and extra-axial spaces for the patient''s age. There are areas of decreased attenuation within the white matter tracts of the supratentorial brain, consistent with microvascular disease changes. Normal basal ganglia and thalami. Normal brainstem. Normal cerebellum. There is no intracranial hemorrhage. There are no findings of an acute ischemic infarction. There is mucoperiosteal inflammatory disease of the paranasal sinuses consistent with moderate chronic sinusitis. CT/Brain/Head without Contrast IMPRESSION: Chronic involutional changes of the brain. No acute abnormality. Electronically Signed: Bahman Mayorga MD at 16:40 EDT ,
--- NOTE | 2024-02-11 15:22 | CT_ITS ---
STUDY: CT LUMBAR SPINE WITHOUT CONTRAST REASON FOR EXAM: Female, 83 years old. low back pain RADIATION DOSAGE (If Supplied By Facility): CTDIvol = ( 13.82 ) mGy, DLP = ( 463.64 ) mGycm TECHNIQUE: The patient was scanned in a multi detector CT scanner. High resolution transaxial imaging was performed. Images were obtained from to . Sagittal and coronal images were reconstructed. Individualized dose optimization techniques were used for this CT. COMPARISON: None FINDINGS: Normal lumbar lordosis. There is no substantial scoliosis. There are old compression fractures of T10 and T12 status post kyphoplasty. There are also chronic mild depression deformities of the superior endplate of T11 and more severe fracture of L1 without definitive fracture line L1-2: There is mild to moderate chronic wedging of the superior endplate of L2. Normal disc height and morphology. Normal bilateral facet joints. Normal central canal and bilateral lateral recesses. Normal bilateral intervertebral neural foramina. L2-3: Normal endplates. Normal disc height and morphology. Normal bilateral facet joints. Normal central canal and bilateral lateral recesses. Normal bilateral intervertebral neural foramina. L3-4: There is a sclerotic density within the L3 vertebral body possibly also due to prior vertebroplasty Normal disc height and morphology. Normal bilateral facet joints. Normal central canal and bilateral lateral recesses. Normal bilateral intervertebral neural foramina. L4-5: Normal endplates. Normal disc height and mild annular bulge. Mild facet arthropathy and thickening of ligamenta flava Normal central canal and bilateral lateral recesses. Mild bilateral neural foraminal stenosis L5-S1: Normal endplates. Normal disc height and minor annular bulge. Mild facet arthropathy and thickening of ligamenta flava. Normal central canal and bilateral lateral recesses. Normal bilateral intervertebral neural foramina. Normal visualized paraspinous soft tissue structures. CT/Spine Lumbar without Contrast IMPRESSION: Old fractures of T10 and T12 status post kyphoplasty as well as possible vertebroplasty of L3. There are also wedging of superior endplates of T11, L2 and L1 without definitive acute fracture lines of indeterminate chronicity. In the absence of prior films for comparison, MRI would be helpful for more definitive aging of the injuries. Electronically Signed: John Adams MD at 17:14 EDT ,
--- NOTE | 2024-02-11 15:22 | CT_ITS ---
EXAM: CT CERVICAL SPINE WITHOUT INTRAVENOUS CONTRAST CLINICAL INDICATION: fall, left sided neck pain TECHNIQUE: Helically acquired images were obtained of the cervical spine without intravenous contrast. 2D reformatted images were reviewed. This CT exam was performed using one or more of the following dose reduction techniques: automated exposure control, adjustment of the mA and/or kV according to patient size, and/or use of iterative reconstruction technique. RADIATION DOSE: CTDIvol = 16.14 mGy, DLP = 329.48 mGy-cm COMPARISON: No relevant prior studies available. FINDINGS: VERTEBRAE: No acute abnormality. No fracture. No traumatic subluxation. No discrete lytic or blastic abnormality. Normal alignment. Normal craniocervical junction and cervicothoracic junction. DISCS/SPINAL CANAL/NEURAL FORAMINA: Mild multilevel degenerative disc disease and loss of disc height. Prominent broad disc bulges at C5-C6 and C6-C7. No critical stenosis. SOFT TISSUES: Unremarkable. No prevertebral soft tissue swelling. LYMPH NODES: Unremarkable. No cervical adenopathy. LUNG APICES: Unremarkable as visualized. Clear. CT/Spine Cervical without Contras IMPRESSION: No evidence of acute cervical spinal fracture or spondylolisthesis. Multilevel degenerative changes and broad-based disc bulges at C5-C6 and C6-C7. Electronically Signed: Bahman Mayorga MD at 16:37 EDT ,
--- NOTE | 2024-02-11 16:00 | RAD_ITS ---
STUDY: X-RAY - PELVIS AND LEFT HIP REASON FOR EXAM: Female, 83 years old. left hip pain TECHNIQUE: 3 views of the pelvis and hip. COMPARISON: None. FINDINGS: There is a non-specific bowel gas pattern. Normal visualized soft tissue structures. Normal bilateral iliac wings, sacroiliac joints and visualized sacrum. Normal bilateral superior and inferior pubic rami. Normal pubic symphysis. Normal bilateral ischial tuberosities. Normal visualized femoral head. Normal acetabulum. Normal hip joint. RAD/HIP, UNI W/ Pelvis 2-3 Views IMPRESSION: Normal x-ray examination of the pelvis and hip. Electronically Signed: Bahman Mayorga MD at 16:44 EDT ,
[2024-02-11 17:06] VITALS: BP 129/64; PULSE 68; RESP 18; O2SAT 100
[2024-02-11 17:45] VITALS: BP 132/64; PULSE 82; RESP 18; TEMP 36.6; O2SAT 97
== END 2024-02-11 17:58 | disposition home or self-care (01) ==
PROVIDERS: Emergency Provider Emergency Medicine; PCP Registered Nurse; Visit Provider Emergency Medicine
DX: M25.552 Pain in left hip (principal); I50.32 Chronic diastolic (congestive) heart failure; E11.51 Type 2 diabetes mellitus with diabetic peripheral angiopathy without gangrene; E11.42 Type 2 diabetes mellitus with diabetic polyneuropathy; G47.33 Obstructive sleep apnea (adult) (pediatric); I25.10 Atherosclerotic heart disease of native coronary artery without angina pectoris; W19.XXXA Unspecified fall, initial encounter; Z86.73 Personal history of transient ischemic attack (TIA), and cerebral infarction without residual deficits
CPT/HCPCS: 70450; 72125; 72131; 73502; 99282

== ENCOUNTER → 2024-10-29 | Outpatient (CLI) | payer MEDICARE, SELFPAY ==
--- NOTE | 2024-10-29 13:45 | ECHOD_ITS ---
Reason For Study Reason For Study: ARRHYTHMIA/PAROXYSMAL ATRIAL FIBRILLATION Procedure This was a 2D Doppler, Color Flow transthoracic echocardiogram. Exam performed in department. Left Ventricle Mild concentric left ventricular hypertrophy. The LV systolic function is normal. EF is 65 %. Stage 1 diastolic dysfunction. Right Ventricle Normal right ventricle. Atria The left and right atria are normal. Mitral Valve Mild mitral annular calcification. Trivial mitral valve insufficiency. Tricuspid Valve Trivial tricuspid valve insufficiency. Normal pulmonary artery pressure. Aortic Valve Trisinus/trileaflet aortic valve. Mild-Moderate (1-2+) aortic valve insufficiency. Pulmonic Valve The pulmonic valve is not well visualized. Trivial pulmonic valve insufficiency. Great Vessels Normal sized aortic root. Pericardium/Pleural Trivial pericardial effusion. MMode/2D Measurements & Calculations LVIDd: 4.6 cm IVSd: 1.3 cm Ao root diam: 3.1 cm LVIDs: 3.5 cm LVPWd: 1.3 cm RVDd: 4.0 cm FS: 22.7 % LAV(MOD-bp): 55.7 ml LVAd ap4: 22.3 cm2 LVAd ap2: 21.0 cm2 LAV(MOD-bp) Indexed: 35.1 ml/m2 LVLd ap4: 6.1 cm LVLd ap2: 6.9 cm LAV(MOD-sp2): 54.2 ml EDV(MOD-sp4): 65.7 ml EDV(MOD-sp2): 52.7 ml LAV(MOD-sp4): 48.0 ml EDV(sp4-el): 69.3 ml EDV(sp2-el): 54.6 ml LVAs ap4: 11.5 cm2 LVAs ap2: 10.0 cm2 LVLs ap4: 5.2 cm LVLs ap2: 5.5 cm ESV(MOD-sp4): 22.1 ml ESV(MOD-sp2): 16.1 ml ESV(sp4-el): 21.7 ml ESV(sp2-el): 15.4 ml EF(MOD-sp4): 66.4 % EF(MOD-sp2): 69.4 % EF(sp4-el): 68.7 % SV(MOD-sp4): 43.6 ml SV(MOD-sp2): 36.6 ml SV(sp4-el): 47.6 ml SI(MOD-sp4): 27.5 ml/m2 SI(MOD-sp2): 23.0 ml/m2 LA A4 area: 16.9 cm2 LA dimension(2D): 3.6 cm TAPSE: 2.3 cm Time Measurements MV dec time: 0.16 sec Doppler Measurements & Calculations MV E max oliver: 63.5 cm/sec Lat Peak E' Oliver: 6.3 cm/sec Med Peak E' Oliver: 4.7 cm/sec MV A max oliver: 89.6 cm/sec E/E' lat: 10.1 E/E' med: 13.4 MV E/A: 0.71 MV V2 max: 105.3 cm/sec MV P1/2t max oliver: 77.0 cm/sec Ao V2 max: 138.4 cm/sec MV max P.4 mmHg MV P1/2t: 56.7 msec Ao max P.7 mmHg MV V2 mean: 51.0 cm/sec Ao V2 mean: 94.3 cm/sec MV mean P.3 mmHg MV dec slope: 397.6 cm/sec2 Ao mean P.9 mmHg MV V2 VTI: 26.7 cm MVA(P1/2t): 3.9 cm2 Ao V2 VTI: 31.1 cm AV (velocity ratio): 0.64 AI max oliver: 396.1 cm/sec LV V1 max: 90.8 cm/sec PA V2 max: 84.5 cm/sec AI max P.8 mmHg LV V1 max P.3 mmHg PA V2 mean: 62.4 cm/sec LV V1 mean P.6 mmHg AI dec slope: 227.0 cm/sec2 LV V1 mean: 58.9 cm/sec AI P1/2t: 511.1 msec LV V1 VTI: 19.8 cm TR max oliver: 241.7 cm/sec TR max P.4 mmHg ECHO/Echo Complete Interpretation Summary Mild concentric left ventricular hypertrophy. The LV systolic function is normal. EF is 65 %. Stage 1 diastolic dysfunction. Mild mitral annular calcification. Mild-Moderate (1-2+) aortic valve insufficiency. Trivial pericardial effusion. Ordering Physician: Nargis Albarado Referring Physician: Pia Villarreal Performed By: Abbey Boo, AYANA, RVT
== END | disposition home or self-care (01) ==
LOC: CVS 13:44
PROVIDERS: PCP Registered Nurse; Referring Provider Physician Assistant Medical; Visit Provider Physician Assistant Medical
DX: I48.0 Paroxysmal atrial fibrillation (principal)
CPT/HCPCS: 93306

== ENCOUNTER 2025-04-30 11:47 | Outpatient (CLI) | payer MEDICARE, SELFPAY ==
[2025-04-30 12:02] VITALS: BP 154/44; PULSE 72; RESP 18; TEMP 36; O2SAT 95; BMI 24.5
[2025-04-30 13:12] VITALS: BP 133/50; PULSE 67; RESP 16; TEMP 36.6
[2025-04-30 14:12] VITALS: BP 141/48; PULSE 70; RESP 16; TEMP 36.6
[2025-04-30 14:31] VITALS: BP 155/53; PULSE 65; RESP 18; TEMP 36.6; O2SAT 94
== END 2025-04-30 23:59 | disposition home or self-care (01) ==
LOC: MEDOUTP 11:48
PROVIDERS: PCP Registered Nurse; Referring Provider Internal Medicine Hematology & Oncology; Visit Provider Internal Medicine Hematology & Oncology
DX: D47.3 Essential (hemorrhagic) thrombocythemia (principal)
CPT/HCPCS: 36430; 86850; 86900; 86901; 86920; 86921; 86922; P9016; A4216